=== PATIENT | male | born 1955 | race Caucasian/White ===

== ENCOUNTER 2017-07-15 09:11 | Inpatient (IN) | payer SELFPAY ==
[~2017-07-15] VITALS: Ht 185.4 cm; Wt 74.5 kg
[2017-07-15] VITALS (13 sets, daily range): BP systolic 124–170; BP diastolic 61–114; PULSE 75–96; TEMP 36.8–37.2; O2SAT 91–96; Ht 185.4 cm; Wt 74.5 kg
[2017-07-15] MEDS ORDERED: FAMOTIDINE 20MG/102 ML D5W IV STA (09:43)
[2017-07-15] MEDS ORDERED: ONDANSETRON INJ 2 MG/ML 2 ML VIAL IV STA (09:43)
[2017-07-15] MEDS ORDERED: FENTANYL CITRATE INJ 50 MCG/1 ML 2 ML VIAL IV STA ×2 (09:43→10:55)
[2017-07-15] MEDS ORDERED: SODIUM CHLORIDE 0.9% 1000ML 1,000 ML IV STA (09:43)
--- NOTE | 2017-07-15 09:45 | EMERGENCY ROOM VISIT NOTE ---
History Report prepared by Jasvir: Keerthi Tuttle Under the Supervision of: Dr. Juan Diallo M.D. First contact with patient: 09:27 Chief Complaint: ABDOMINAL PAIN Stated Complaint: ABDOMINAL PAIN Nursing Triage Summary: c/o LLQ abdominal tenderness starting at 3 am. reports vomiting "white mucus". denies diarrhea/constipation. c/o "dribbling and burning" with urination. reports decreased appetite. skin pwd resp even unlabored. History of Present Illness The patient is a 62 year old male who presents to the Emergency Room with complaints of persistent left lower quadrant abdominal pain that began around 0300. He currently rates his discomfort as a 6/10 in severity. The patient states that he woke this morning at 0300 with sudden pain to his abdomen. He states that his pain is worsened with movement and with breathing. The patient denies ever having this in the past. He denies any history of abdominal surgeries. The patient reports an increased cough. He states that he has been feeling intermittently nauseous. The patient reports passing white mucousy stool. He states that he has been feeling dizzy and short of breath. The patient denies any chest pain. Source of History: patient Onset: 0300 Position: abdomen (LLQ) Symptom Intensity: 6/10 Timing: other (persistent) Modifying Factors (Worsening): breathing, movement Associated Symptoms: + cough, + SOB, + nausea, + diarrhea Note: Associated Symptoms: dizzy Review of Systems See HPI for pertinent positives and negatives. A total of ten systems were reviewed and were otherwise negative. Past Medical & Surgical Medical Problems: (1) Hypertension Surgical Problems: (1) Hip fracture, right Family History No pertinent family history stated. Social History Smoking Status: Current Every Day Smoker Marital Status: single Occupation Status: unemployed Current/Historical Medications No Active Prescriptions or Reported Meds Allergies Coded Allergies: No Known Allergies (Unverified , 07/15/17) Physical Exam Vital Signs Date Time Temp Pulse Resp B/P (MAP) Pulse Ox O2 Delivery O2 Flow Rate FiO2 07/15/17 12:39 174/113 07/15/17 12:30 17 07/15/17 12:00 22 07/15/17 11:30 91 18 98 07/15/17 11:00 82 22 98 07/15/17 10:48 195/124 07/15/17 10:05 69 16 07/15/17 10:00 68 17 95 07/15/17 09:59 167/109 07/15/17 09:50 72 07/15/17 09:18 36.7 59 18 199/122 99 Room Air Physical Exam GENERAL: Awake, alert, uncomfortable but in no acute distress HENT: Normocephalic, atraumatic. Dry mucous membranes. EYES: Normal conjunctiva. Sclera non-icteric. NECK: Supple. No nuchal rigidity. FROM. No JVD. RESPIRATORY: Clear to auscultation. CARDIAC: Regular rate, normal rhythm. Extremities warm and well perfused. Pulses equal. ABDOMEN: Soft, non-distended. Exquisite left lower quadrant tenderness to palpation, mild epigastric tenderness to palpation, no peritoneal signs. No rebound or guarding. No masses. RECTAL: Deferred. MUSCULOSKELETAL: Chest examination reveals no tenderness. The back is symmetrical on inspection without obvious abnormality. There is no CVA tenderness to palpation. No joint edema. LOWER EXTREMITIES: Calves are equal size bilaterally and non-tender. No edema. No discoloration. NEURO: Normal sensorium. No sensory or motor deficits noted. SKIN: No rash or jaundice noted. Medical Decision & Procedures ER Provider Diagnostic Interpretation: Radiology results as stated below per my review and radiologist interpretation: CHEST ONE VIEW PORTABLE CLINICAL HISTORY: 62 years-old Male presenting with ABDOMINAL PAIN/GI. TECHNIQUE: Portable upright AP view of the chest was obtained. COMPARISON: None. FINDINGS: Cardiomediastinal silhouette normal. Minimal reticular opacities at the left lung base. No large effusion or pneumothorax. Osseous structures normal. Upper abdomen normal. IMPRESSION: 1. Minimal reticulation at the left lung base, possibly scarring or atelectasis. Electronically signed by: Kris Lopez M.D. 07/15/2017 10:03 AM Dictated Date/Time: 07/15/2017 10:02 AM ABD/PELVIS IV CONTRAST ONLY CLINICAL HISTORY: 62 years-old Male presenting with upper and LLQ abd pain, trouble urinating. TECHNIQUE: Multidetector CT of the abdomen and pelvis was performed after the administration of intravenous contrast. IV contrast: 94 mL of Optiray 320. A dose lowering technique was used consistent with the principles of ALARA (as low as reasonably achievable). COMPARISON: None. CT DOSE (mGy.cm): The estimated cumulative dose is 529.57 mGycm. FINDINGS: [employer] Supervisor topogram: Intramedullary nail fixation of the right femoral neck and proximal metadiaphysis. Lung bases: Minimal dependent changes likely atelectasis. Emphysematous changes also noted. Multichamber enlargement of the heart. No pericardial or pleural effusion. Liver: Normal morphology. No liver lesion. Patent hepatic vasculature. Biliary: No intrahepatic or extrahepatic biliary ductal dilatation. Focal thickening of the gallbladder fundus likely adenomyomatosis. Pancreas: Extensive peripancreatic fluid and inflammatory change along the tail. Parenchyma enhances normally. No pancreatic ductal dilatation. Spleen: Normal. Adrenal glands: Normal. Kidneys and ureters: Severe hydronephrosis bilaterally with hydroureter. An obstructing 11 mm calculus is noted in the proximal right ureter. Additional nonobstructing calculus measuring 4 mm at the right lower pole. Obstructing 8 mm calculus in the mid left ureter. Nonobstructing left renal calculi measuring up to 6 mm in the lower pole. Moderate amount of left perinephric fluid. Bladder: Circumference of bladder wall thickening likely indicating chronic outlet obstruction. No bladder calculi. Pelvic organs: Prostate enlargement likely secondary to benign prostatic hyperplasia. Bowel: Normal. No bowel obstruction. Moderate hiatal hernia. Peritoneal cavity: No free fluid or intraperitoneal gas. Extensive retroperitoneal fluid as described above. Vasculature: Aorta and IVC patent and normal in caliber. Lymph nodes: Multiple prominent retroperitoneal lymph nodes, which are subcentimeter in the short axis, likely reactive. Abdominal wall: Normal. Musculoskeletal: Intramedullary nail through the right femoral neck and proximal metadiaphysis. IMPRESSION: 1. Bilateral obstructing ureteral calculi measuring 11 mm in the proximal right ureter and 8 mm in the mid left ureter. Resultant severe bilateral hydroureteronephrosis. Additional bilateral nephrolithiasis. The presence of extensive left perinephric fluid suggests calyceal rupture. 2. Extensive peripancreatic fluid along the tail. This could be secondary to left renal calyceal rupture versus acute interstitial edematous pancreatitis. Correlate with lipase. 3. Prostatomegaly with chronic bladder outlet obstruction. Electronically signed by: Kris Lopez M.D. 07/15/2017 10:58 AM Dictated Date/Time: 07/15/2017 10:51 AM Laboratory Results 07/15/17 09:20 Red Blood Count 5.04, Mean Corpuscular Volume 96.0, Mean Corpuscular Hemoglobin 31.5, Mean Corpuscular Hemoglobin Concent 32.9, Mean Platelet Volume 10.5, Neutrophils (%) (Auto) 80.9, Lymphocytes (%) (Auto) 13.4, Monocytes (%) (Auto) 4.9, Eosinophils (%) (Auto) 0.1, Basophils (%) (Auto) 0.2, Neutrophils # (Auto) 11.99, Lymphocytes # (Auto) 1.99, Monocytes # (Auto) 0.73, Eosinophils # (Auto) 0.02, Basophils # (Auto) 0.03 07/15/17 09:20 Test 07/15/17 09:20 07/15/17 09:58 07/15/17 10:37 White Blood Count 14.83 K/uL (4.8-10.8) Red Blood Count 5.04 M/uL (4.7-6.1) Hemoglobin 15.9 g/dL (14.0-18.0) Hematocrit 48.4 % (42-52) Mean Corpuscular Volume 96.0 fL (80-100) Mean Corpuscular Hemoglobin 31.5 pg (25-34) Mean Corpuscular Hemoglobin Concent 32.9 g/dl (32-36) Platelet Count 261 K/uL (130-400) Mean Platelet Volume 10.5 fL (7.4-10.4) Neutrophils (%) (Auto) 80.9 % Lymphocytes (%) (Auto) 13.4 % Monocytes (%) (Auto) 4.9 % Eosinophils (%) (Auto) 0.1 % Basophils (%) (Auto) 0.2 % Neutrophils # (Auto) 11.99 K/uL (1.4-6.5) Lymphocytes # (Auto) 1.99 K/uL (1.2-3.4) Monocytes # (Auto) 0.73 K/uL (0.11-0.59) Eosinophils # (Auto) 0.02 K/uL (0-0.5) Basophils # (Auto) 0.03 K/uL (0-0.2) RDW Standard Deviation 45.6 fL (36.4-46.3) RDW Coefficient of Variation 13.1 % (11.5-14.5) Immature Granulocyte % (Auto) 0.5 % Immature Granulocyte # (Auto) 0.07 K/uL (0.00-0.02) Anion Gap 9.0 mmol/L (3-11) Est Creatinine Clear Calc Drug Dose 60.1 ml/min Estimated GFR () 62.8 Estimated GFR (Non- 54.2 BUN/Creatinine Ratio 12.7 (10-20) Calcium Level 10.3 mg/dl (8.5-10.1) Total Bilirubin 0.6 mg/dl (0.2-1) Direct Bilirubin 0.2 mg/dl (0-0.2) Aspartate Amino Transf (AST/SGOT) 20 U/L (15-37) Alanine Aminotransferase (ALT/SGPT) 23 U/L (12-78) Alkaline Phosphatase 102 U/L (45-117) Troponin I < 0.015 ng/ml (0-0.045) Total Protein 7.5 gm/dl (6.4-8.2) Albumin 4.0 gm/dl (3.4-5.0) Lipase 120 U/L (73-393) Lactic Acid Level 1.4 mmol/L (0.4-2.0) Urine Color YELLOW Urine Appearance CLOUDY (CLEAR) Urine pH 6.5 (4.5-7.5) Urine Specific [place] 1.018 (1.000-1.030) Urine Protein NEG (NEG) Urine Glucose (UA) NEG (NEG) Urine Ketones NEG (NEG) Urine Occult Blood 2+ (NEG) Urine Nitrite NEG (NEG) Urine Bilirubin NEG (NEG) Urine Urobilinogen NEG (NEG) Urine Leukocyte Esterase LARGE (NEG) Urine WBC (Auto) >30 /hpf (0-5) Urine RBC (Auto) 10-30 /hpf (0-4) Urine Hyaline Casts (Auto) 1-5 /lpf (0-5) Urine Epithelial Cells (Auto) 0-5 /lpf (0-5) Urine Bacteria (Auto) 1+ (NEG) Laboratory results reviewed by me Medications Administered Medications (Trade) Dose Ordered Sig/Elsi Route Start Time Stop Time Status Last Admin Dose Admin Sodium Chloride 1,000 ml @ 999 mls/hr Q1H1M STAT IV 07/15/17 09:43 07/15/17 10:43 DC 07/15/17 09:57 999 MLS/HR Ondansetron HCl (Zofran Inj) 4 mg NOW STAT IV 10/2/17 09:43 07/15/17 09:47 DC 07/15/17 09:58 4 MG Famotidine (Pepcid 20mg/100 ml) 20 mg ONE STAT IV 07/15/17 09:43 07/15/17 09:47 DC 07/15/17 09:57 20 MG Fentanyl Citrate (Fentanyl Inj) 50 mcg NOW STAT IV 07/15/17 09:43 07/15/17 09:47 DC 07/15/17 09:57 50 MCG Fentanyl Citrate (Fentanyl Inj) 100 mcg NOW STAT IV 07/15/17 10:55 07/15/17 10:56 DC 07/15/17 11:01 100 MCG Morphine Sulfate (MoRPHine SULFATE INJ) 6 mg NOW STAT IV 07/15/17 11:29 07/15/17 11:31 DC 07/15/17 11:35 6 MG Ceftriaxone Sodium 2000 mg/ Dextrose 70 ml @ 100 mls/hr ONE STAT IV 07/15/17 11:29 07/15/17 12:10 DC 07/15/17 12:36 100 MLS/HR ECG Indication: abdominal pain, back/shoulder pain Rate (beats per minute): 58 Rhythm: sinus bradycardia Findings: no acute ischemic change, other (normal intervals) ED Course 0930: The patient was evaluated in room B9. A complete history and physical exam was performed. 0943: Ordered Fentanyl Inj 50 mcg IV, Famotidine 20 mg IV, Zofran Inj 4 mg IV, Sodium Chloride 1000 ml @ 999 mls/hr IV. 1055: Ordered Fentanyl Inj 100 mcg IV. 1129: Ordered Ceftriaxone Sodium 2000 mg/Dextrose 70 ml @ 100 mls/hr IV, Morphine sulfate 6 mg IV. 1131: I reevaluated the patient and he is resting. I discussed the exam findings with him and I discussed the treatment plan. He verbalized complete understanding and agreement. He will be evaluated for further treatment. 1151: I discussed the patients case with Dr. Dubois, Urology. She states that she will try to place a stent in the patient this afternoon, but would also like the hospitalist consulted to evaluate the patient. 1217: I discussed the patients case with Dr. [facility]. He is going to evaluate the patient for further treatment. Medical Decision The patient's presentation and history were concerning for Bowel obstruction, diverticulitis, colitis, gastroenteritis, gastritis, biliary etiology. I reviewed the patient's past medical history, medications, and the nursing notes as described above. The patient is a 62 y/o man who presents to the ED with acute onset abdominal pain per HPI. On arrival the patient is uncomfortable but in NAD. AFVSS. Exquisite LLQ ttp. Mild epigastrim pain. No peritoneal signs. WBC 14, lactate within normal limits. On CT the patient has bilateral obstructing ureteral stones, 11 millimeters on the right and 8 mm on the left. UA grossly positive for infection, will treat for infected stone and admit. Given CTX given patient is non-toxic, without signs of sepsis, and no h/o of or risk factors for resistant organisms. Case d/w Dr. Dubois, urology, who will plan to take patient to OR for stent. Also, d/w Rosario Ashby hospitalist who will admit the patient for further management. Medication Reconcilliation Current Medication List: was personally reviewed by me Blood Pressure Screening Patient's blood pressure: Elevated blood pressure Blood pressure disposition: Elevated BP felt to be situational, Did not require urgent referral Consults Time Called: 1126 Consulting Physician: Dr. Dubois, Urology Returned Call: 1151 I discussed the patients case with Dr. Dubois, Urology. She states that she will try to place a stent in the patient this afternoon, but would also like the hospitalist consulted to evaluate the patient. Additional Consults: Time Called: 1156 Consulted Physician: Rosario Ashby Returned Call: [phone] Additional Comments: I discussed the patients case with Rosario Ashby. He is going to evaluate the patient for further treatment. Impression Primary Impression: Ureterolithiasis Additional Impressions: Hydronephrosis UTI (urinary tract infection) Scribe Attestation The scribe's documentation has been prepared under my direction and personally reviewed by me in its entirety. I confirm that the note above accurately reflects all work, treatment, procedures, and medical decision making performed by me. Departure Information Dispostion Being Evaluated By Hospitalist Prescriptions No Active Prescriptions or Reported Meds Problem Qualifiers
[2017-07-15 09:57] LABS: BASO % 0.2 %; BASO ABS # 0.03 K/uL (0-0.2); COMPLETE YES; EOS % 0.1 %; HEMATOCRIT 48.4 % (42-52); IG% 0.5 %; LYMPH % 13.4 %; LYMPH ABS # 1.99 K/uL (1.2-3.4); MEAN CORPUSCULAR HEMOGLOBIN 31.5 pg (25-34); MEAN CORPUSCULAR HGB CONC 32.9 g/dl (32-36); MEAN PLATELET VOLUME 10.5 fL (7.4-10.4); MONO % 4.9 %; NEUT % 80.9 %; PLATELET COUNT 261 K/uL (130-400); RED BLOOD COUNT 5.04 M/uL (4.7-6.1); WHITE BLOOD COUNT 14.83 K/uL (4.8-10.8)
[2017-07-15] MEDS ORDERED: OPTIRAY 320 IV PRN (10:00)
[2017-07-15 10:04] LABS: ALT/SGPT 23 U/L (12-78); BLOOD UREA NITROGEN 18 mg/dl (7-18); BUN/CREATININE RATIO 12.7 (10-20); CALCIUM 10.3 mg/dl (8.5-10.1); CARBON DIOXIDE 24 mmol/L (21-32); CHLORIDE 108 mmol/L (98-107); GLUCOSE 115 mg/dl (70-99); POTASSIUM 4.3 mmol/L (3.5-5.1); SODIUM 141 mmol/L (136-145)
--- NOTE | 2017-07-15 10:04 | DIAGNOSTIC IMAGING REPORT ---
CHEST ONE VIEW PORTABLE CLINICAL HISTORY: 62 years-old Male presenting with ABDOMINAL PAIN/GI. TECHNIQUE: Portable upright AP view of the chest was obtained. COMPARISON: None. FINDINGS: Cardiomediastinal silhouette normal. Minimal reticular opacities at the left lung base. No large effusion or pneumothorax. Osseous structures normal. Upper abdomen normal. IMPRESSION: 1. Minimal reticulation at the left lung base, possibly scarring or atelectasis. Electronically signed by: Kris Lopez M.D. 07/15/2017 10:03 AM Dictated Date/Time: 07/15/2017 10:02 AM
[2017-07-15 10:09] LABS: ALKALINE PHOSPHATASE 102 U/L (45-117); AST/SGOT 20 U/L (15-37)
--- NOTE | 2017-07-15 10:59 | DIAGNOSTIC IMAGING REPORT ---
ABD/PELVIS IV CONTRAST ONLY CLINICAL HISTORY: 62 years-old Male presenting with upper and LLQ abd pain, trouble urinating. TECHNIQUE: Multidetector CT of the abdomen and pelvis was performed after the administration of intravenous contrast. IV contrast: 94 mL of Optiray 320. A dose lowering technique was used consistent with the principles of ALARA (as low as reasonably achievable). COMPARISON: None. CT DOSE (mGy.cm): The estimated cumulative dose is 529.57 mGycm. FINDINGS: [employer] Consultant topogram: Intramedullary nail fixation of the right femoral neck and proximal metadiaphysis. Lung bases: Minimal dependent changes likely atelectasis. Emphysematous changes also noted. Multichamber enlargement of the heart. No pericardial or pleural effusion. Liver: Normal morphology. No liver lesion. Patent hepatic vasculature. Biliary: No intrahepatic or extrahepatic biliary ductal dilatation. Focal thickening of the gallbladder fundus likely adenomyomatosis. Pancreas: Extensive peripancreatic fluid and inflammatory change along the tail. Parenchyma enhances normally. No pancreatic ductal dilatation. Spleen: Normal. Adrenal glands: Normal. Kidneys and ureters: Severe hydronephrosis bilaterally with hydroureter. An obstructing 11 mm calculus is noted in the proximal right ureter. Additional nonobstructing calculus measuring 4 mm at the right lower pole. Obstructing 8 mm calculus in the mid left ureter. Nonobstructing left renal calculi measuring up to 6 mm in the lower pole. Moderate amount of left perinephric fluid. Bladder: Circumference of bladder wall thickening likely indicating chronic outlet obstruction. No bladder calculi. Pelvic organs: Prostate enlargement likely secondary to benign prostatic hyperplasia. Bowel: Normal. No bowel obstruction. Moderate hiatal hernia. Peritoneal cavity: No free fluid or intraperitoneal gas. Extensive retroperitoneal fluid as described above. Vasculature: Aorta and IVC patent and normal in caliber. Lymph nodes: Multiple prominent retroperitoneal lymph nodes, which are subcentimeter in the short axis, likely reactive. Abdominal wall: Normal. Musculoskeletal: Intramedullary nail through the right femoral neck and proximal metadiaphysis. IMPRESSION: 1. Bilateral obstructing ureteral calculi measuring 11 mm in the proximal right ureter and 8 mm in the mid left ureter. Resultant severe bilateral hydroureteronephrosis. Additional bilateral nephrolithiasis. The presence of extensive left perinephric fluid suggests calyceal rupture. 2. Extensive peripancreatic fluid along the tail. This could be secondary to left renal calyceal rupture versus acute interstitial edematous pancreatitis. Correlate with lipase. 3. Prostatomegaly with chronic bladder outlet obstruction. Electronically signed by: Kris Lopez M.D. 07/15/2017 10:58 AM Dictated Date/Time: 07/15/2017 10:51 AM
[2017-07-15 11:05] LABS: URINE APPEARANCE CLOUDY (CLEAR); URINE BILIRUBIN NEG (NEG); URINE COLOR YELLOW; URINE EPITHELIAL CELL AUTO 0-5 /lpf (0-5); URINE NITRITE NEG (NEG); URINE PH 6.5 (4.5-7.5); URINE SPECIFIC GRAVITY 1.018 (1.000-1.030); UROBILINOGEN NEG (NEG); ZZUR CULT IF INDIC CLEAN CATCH YES
[2017-07-15 11:08] LABS: MANUAL MICROSCOPIC REQUIRED? NO; REVIEW REQ? NO
[2017-07-15] MEDS ORDERED: CEFTRIAXONE SOD INJ 2,000 MG in DEXTROSE 5% 50ML 50 ML IV STA (11:29)
[2017-07-15] MEDS ORDERED: MoRPHine SULFATE 10 MG/ML CARP/VIAL IV STA (11:29)
--- NOTE | 2017-07-15 12:43 | History and Physical ---
History & Physical Date & Time of Service: Jul 15, 2017 at 12:43 . Chief Complaint: Abdominal Pain . Primary Care Physician: No Doctor, Assigned . History of Present Illness Source: patient, hospital records 62 YO male without a primary care provider. History of hypertension; has been unable to obtain his medications. Developed abdominal pain around 3:00 this morning when he was sleeping. Pain located in the LLQ and does not radiate. It is constant and severe (9/10). Associated with nausea and vomiting. No fever. No dysuria. No diarrhea, melena, hematochezia. Did not take any meds to relieve his symptoms at home. Came to ED for evaluation. Received ondansetron, fentanyl, and morphine with minimal relief of his symptoms. CT of abdomen and pelvis demonstrated bilateral ureteral calculi as detailed below. 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 Patient referred for admission for further evaluation and management. . Past Medical/Surgical History Chronic Medical Problems: (1) Hypertension Status: Chronic Surgical Problems: (1) Hip fracture, right Permanent Comment: s/p ORIF Status: Chronic . Family History Pt unaware of any family medical history. . Social History Smoking Status: Current Every Day Smoker Alcohol Use: none Allergies Coded Allergies: No Known Allergies (Unverified , 07/15/17) Home Medications No Active Prescriptions or Reported Meds Review of Systems Constitutional: + chills, No fever, No weight loss Eyes: No worsening of vision ENT: + dental problems (edentulous) Respiratory: + cough (chronic), + dyspnea on exertion Cardiovascular: No chest pain Abdomen: + problem reported (as noted above in HPI) Musculoskeletal: + joint pain (right hip) Genitourinary - Male: + problem reported (as noted above in HPI) Neurologic: + problem reported (no headaches) Endocrine: No excessive thirst, No excessive urination Hematologic / Lymphatic: No abnormal bleeding/bruising, No swollen lymph nodes Physical Exam Vital Signs Date Time Temp Pulse Resp B/P (MAP) Pulse Ox O2 Delivery O2 Flow Rate FiO2 07/15/17 12:39 174/113 07/15/17 12:30 17 07/15/17 12:00 22 07/15/17 11:30 91 18 98 07/15/17 11:00 82 22 98 07/15/17 10:48 195/124 07/15/17 10:05 69 16 07/15/17 10:00 68 17 95 07/15/17 09:59 167/109 07/15/17 09:50 72 07/15/17 09:18 36.7 59 18 199/122 99 Room Air General Appearance: WD/WN, + moderate distress Head: normocephalic, atraumatic Eyes: normal inspection, PERRL, EOMI, sclerae normal (conjunctivae pink) ENT: hearing grossly normal, + pertinent finding (oral mucosa dry, edentulous) Neck: supple, no adenopathy, thyroid normal, no JVD, trachea midline Respiratory/Chest: lungs clear, no respiratory distress, no accessory muscle use Cardiovascular: regular rate, rhythm, no edema, no JVD, no murmur, + gallop/S4 Abdomen/GI: + pertinent finding (quiet bowel sounds, left lower quadrant tenderness with guarding, no masses or organomegaly appreciated, but exam limited) Extremities/Musculoskelatal: normal inspection, no calf tenderness, no pedal edema 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 as 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 (PERRL, EOMI, no facial palsy), no motor/sensory deficits (grossly intact), alert, normal mood/affect, oriented x 3 Skin: normal color, warm/dry, no rash Lymphatic: no adenopathy (cervical) Diagnostics Laboratory Results Results Past 24 Hours Test 07/15/17 09:20 07/15/17 09:58 07/15/17 10:37 Range/Units White Blood Count 14.83 4.8-10.8 K/uL Red Blood Count 5.04 4.7-6.1 M/uL Hemoglobin 15.9 14.0-18.0 g/dL Hematocrit 48.4 42-52 % Mean Corpuscular Volume 96.0 80-100 fL Mean Corpuscular Hemoglobin 31.5 25-34 pg Mean Corpuscular Hemoglobin Concent 32.9 32-36 g/dl Platelet Count 261 130-400 K/uL Mean Platelet Volume 10.5 7.4-10.4 fL Neutrophils (%) (Auto) 80.9 % Lymphocytes (%) (Auto) 13.4 % Monocytes (%) (Auto) 4.9 % Eosinophils (%) (Auto) 0.1 % Basophils (%) (Auto) 0.2 % Neutrophils # (Auto) 11.99 1.4-6.5 K/uL Lymphocytes # (Auto) 1.99 1.2-3.4 K/uL Monocytes # (Auto) 0.73 0.11-0.59 K/uL Eosinophils # (Auto) 0.02 0-0.5 K/uL Basophils # (Auto) 0.03 0-0.2 K/uL RDW Standard Deviation 45.6 36.4-46.3 fL RDW Coefficient of Variation 13.1 11.5-14.5 % Immature Granulocyte % (Auto) 0.5 % Immature Granulocyte # (Auto) 0.07 0.00-0.02 K/uL Sodium Level 141 136-145 mmol/L Potassium Level 4.3 3.5-5.1 mmol/L Chloride Level 108 98-107 mmol/L Carbon Dioxide Level 24 21-32 mmol/L Anion Gap 9.0 3-11 mmol/L Blood Urea Nitrogen 18 7-18 mg/dl Creatinine 1.40 0.60-1.40 mg/dl Est Creatinine Clear Calc Drug Dose 60.1 ml/min Estimated GFR () 62.8 Estimated GFR (Non- 54.2 BUN/Creatinine Ratio 12.7 10-20 Random Glucose 115 70-99 mg/dl Calcium Level 10.3 8.5-10.1 mg/dl Total Bilirubin 0.6 0.2-1 mg/dl Direct Bilirubin 0.2 0-0.2 mg/dl Aspartate Amino Transf (AST/SGOT) 20 15-37 U/L Alanine Aminotransferase (ALT/SGPT) 23 12-78 U/L Alkaline Phosphatase 102 45-117 U/L Troponin I < 0.015 0-0.045 ng/ml Total Protein 7.5 6.4-8.2 gm/dl Albumin 4.0 3.4-5.0 gm/dl Lipase 120 73-393 U/L Lactic Acid Level 1.4 0.4-2.0 mmol/L Urine Color YELLOW Urine Appearance CLOUDY CLEAR Urine pH 6.5 4.5-7.5 Urine Specific [place] 1.018 1.000-1.030 Urine Protein NEG NEG Urine Glucose (UA) NEG NEG Urine Ketones NEG NEG Urine Occult Blood 2+ NEG Urine Nitrite NEG NEG Urine Bilirubin NEG NEG Urine Urobilinogen NEG NEG Urine Leukocyte Esterase LARGE NEG Urine WBC (Auto) >30 0-5 /hpf Urine RBC (Auto) 10-30 0-4 /hpf Urine Hyaline Casts (Auto) 1-5 0-5 /lpf Urine Epithelial Cells (Auto) 0-5 0-5 /lpf Urine Bacteria (Auto) 1+ NEG Microbiology Results 07/15/17 Blood Culture, Ordered Pending 07/15/17 Blood Culture, Ordered Pending 07/15/17 Urine Culture, Received Pending Diagnostic Radiology CHEST ONE VIEW PORTABLE FINDINGS: Cardiomediastinal silhouette normal. Minimal reticular opacities at the left lung base. No large effusion or pneumothorax. Osseous structures normal. Upper abdomen normal. IMPRESSION: 1. Minimal reticulation at the left lung base, possibly scarring or atelectasis. Electronically signed by: Kris Lopez M.D. 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 Lung bases: Minimal dependent changes likely atelectasis. Emphysematous changes also noted. Multichamber enlargement of the heart. No pericardial or pleural effusion. Liver: Normal morphology. No liver lesion. Patent hepatic vasculature. Biliary: No intrahepatic or extrahepatic biliary ductal dilatation. Focal thickening of the gallbladder fundus likely adenomyomatosis. Pancreas: Extensive peripancreatic fluid and inflammatory change along the tail. Parenchyma enhances normally. No pancreatic ductal dilatation. Spleen: Normal. Adrenal glands: Normal. Kidneys and ureters: Severe hydronephrosis bilaterally with hydroureter. An obstructing 11 mm calculus is noted in the proximal right ureter. Additional nonobstructing calculus measuring 4 mm at the right lower pole. Obstructing 8 mm calculus in the mid left ureter. Nonobstructing left renal calculi measuring up to 6 mm in the lower pole. Moderate amount of left perinephric fluid. Bladder: Circumference of bladder wall thickening likely indicating chronic outlet obstruction. No bladder calculi. Pelvic organs: Prostate enlargement likely secondary to benign prostatic hyperplasia. Bowel: Normal. No bowel obstruction. Moderate hiatal hernia. Peritoneal cavity: No free fluid or intraperitoneal gas. Extensive retroperitoneal fluid as described above. Vasculature: Aorta and IVC patent and normal in caliber. Lymph nodes: Multiple prominent retroperitoneal lymph nodes, which are subcentimeter in the short axis, likely reactive. Abdominal wall: Normal. Musculoskeletal: Intramedullary nail through the right femoral neck and proximal metadiaphysis. IMPRESSION: 1. Bilateral obstructing ureteral calculi measuring 11 mm in the proximal right ureter and 8 mm in the mid left ureter. Resultant severe bilateral hydroureteronephrosis. Additional bilateral nephrolithiasis. The presence of extensive left perinephric fluid suggests calyceal rupture. 2. Extensive peripancreatic fluid along the tail. This could be secondary to left renal calyceal rupture versus acute interstitial edematous pancreatitis. Correlate with lipase. 3. Prostatomegaly with chronic bladder outlet obstruction. Electronically signed by: Kris Lopez M.D. 07/15/2017 10:58 AM Dictated Date/Time: 07/15/2017 10:51 AM . EKG EKG performed at 09:24 reviewed and demonstrated sinus bradycardia with sinus arrhythmia at 58 / minute, lateral T-wave flattening and biphasic T-waves. . Impression Assessment and Plan BILATERAL URETERAL CALCULI CT demonstrates bilateral ureteral calculi with bilateral hydronephrosis and left perinephric fluid suggesting calyceal rupture. WBC elevated, but does not appear to be septic. Blood and urine cultures obtained in ED and patient received IV ceftriaxone. Urology consulted. Will change antibiotic to IV piperacillin / tazobactam for broader coverage. PERIPANCREATIC FLUID Noted on CT. Lipase normal. Peripancreatic fluid most likely secondary to calyceal rupture. PROSTATOMEGALY CT demonstrates prostatomegaly and evidence of chronic urinary retention. Management per Urology. HYPERTENSIVE URGENCY History of hypertension. Unable to obtain meds. Systolic BP in ED as high as 199, diastolic BP as high as 124. IV labetalol PRN while NPO and until BP's are better controlled. Follow and titrate Rx. CARDIOMEGALY Noted on CT. Check echo. SMOKING Smoking cessation counseling. VTE PROPHYLAXIS No anticoagulants in light of anticipated surgery + markedly elevated BP's. SCD's. Ambulate as able. RESUSCITATION STATUS Full code. DISPOSITION Expected discharge to home. Will need to establish with primary care. Currently without insurance and unable to pay for meds- consult Case Management. Urology follow-up with Dr. Dubois. . VTE Prophylaxis VTE Risk Assessment Done? Y/N: Yes Risk Level: Moderate Given or contraindicated: SCD's
[2017-07-15] MEDS ORDERED: LABETALOL HCL IV 5 MG/ML 20ML IV STA (12:59)
[2017-07-15] MEDS ORDERED: MoRPHine SULFATE 2 MG/ML CARP IV STA (12:59)
[2017-07-15] MEDS ORDERED: SODIUM CHLORIDE 0.9% 1000ML 1,000 ML IV SCH (13:00)
[2017-07-15] MEDS ORDERED: MoRPHine SULFATE 4 MG/ML 1 ML CARP\\VIAL IV ONE (13:05)
[2017-07-15] MEDS ORDERED: PIPERACILLIN/TAZOBACTAM 4.5 GM/100ML D5W IV STA (13:21)
[2017-07-15] MEDS ORDERED: LABETALOL HCL IV 5 MG/ML 20ML IV PRN (13:30)
[2017-07-15] MEDS ORDERED: ONDANSETRON INJ 2 MG/ML 2 ML VIAL IV PRN ×2 (13:30→15:30)
[2017-07-15] MEDS ORDERED: PIPERACILL/TAZOBAC IV 4.5 GM in DEXTROSE 5% 100ML IV STA (13:46)
[2017-07-15] MEDS ORDERED: PIPERACILL/TAZOBAC CONSULT ACTIVE PRN (14:00)
[2017-07-15] MEDS ORDERED: CONRAY 30% 150ML BOTTLE ONE (14:55)
[2017-07-15] MEDS ORDERED: PROPOFOL IV EMULSION 10 MG/ML 20 ML VIAL IV ONE (15:11)
[2017-07-15] MEDS ORDERED: MIDAZOLAM HCL 1 MG/ML 2ML VIAL ONE (15:11)
[2017-07-15] MEDS ORDERED: FENTANYL CITRATE INJ 50 MCG/1 ML 2 ML VIAL ONE (15:11)
[2017-07-15] MEDS ORDERED: LIDOCAINE HCL 2% 2 ML VIAL (20MG/ML) ONE (15:11)
[2017-07-15] MEDS ORDERED: ALBUT/IPRATROP 3MG/0.5MG NEB 3 ML VIAL NEB STA (15:19)
--- NOTE | 2017-07-15 15:28 | Urology Consultation ---
History General Date of Service: Jul 15, 2017. Chief Complaint: bilateral ureteral stones Primary Care Physician: No Doctor, Assigned Pt seen a urologist before?: No History of Present Illness I am asked by Dr Black to evaluate and treat patient for bilateral obstructing ureteral stones. he has had pain since 3am. he has had associated nausea and emesis. He has a low grade temp in ER. He has not had stones before. He had ct showing right UPJ stone with hydro and a left mid ureteral stone at the iliac vessels with hydro. Imaging Imaging: CT Laboratory Results Past 24 Hours Test 07/15/17 09:20 07/15/17 09:58 07/15/17 10:37 Range/Units White Blood Count 14.83 4.8-10.8 K/uL Red Blood Count 5.04 4.7-6.1 M/uL Hemoglobin 15.9 14.0-18.0 g/dL Hematocrit 48.4 42-52 % Mean Corpuscular Volume 96.0 80-100 fL Mean Corpuscular Hemoglobin 31.5 25-34 pg Mean Corpuscular Hemoglobin Concent 32.9 32-36 g/dl Platelet Count 261 130-400 K/uL Mean Platelet Volume 10.5 7.4-10.4 fL Neutrophils (%) (Auto) 80.9 % Lymphocytes (%) (Auto) 13.4 % Monocytes (%) (Auto) 4.9 % Eosinophils (%) (Auto) 0.1 % Basophils (%) (Auto) 0.2 % Neutrophils # (Auto) 11.99 1.4-6.5 K/uL Lymphocytes # (Auto) 1.99 1.2-3.4 K/uL Monocytes # (Auto) 0.73 0.11-0.59 K/uL Eosinophils # (Auto) 0.02 0-0.5 K/uL Basophils # (Auto) 0.03 0-0.2 K/uL RDW Standard Deviation 45.6 36.4-46.3 fL RDW Coefficient of Variation 13.1 11.5-14.5 % Immature Granulocyte % (Auto) 0.5 % Immature Granulocyte # (Auto) 0.07 0.00-0.02 K/uL Sodium Level 141 136-145 mmol/L Potassium Level 4.3 3.5-5.1 mmol/L Chloride Level 108 98-107 mmol/L Carbon Dioxide Level 24 21-32 mmol/L Anion Gap 9.0 3-11 mmol/L Blood Urea Nitrogen 18 7-18 mg/dl Creatinine 1.40 0.60-1.40 mg/dl Est Creatinine Clear Calc Drug Dose 60.1 ml/min Estimated GFR () 62.8 Estimated GFR (Non- 54.2 BUN/Creatinine Ratio 12.7 10-20 Random Glucose 115 70-99 mg/dl Calcium Level 10.3 8.5-10.1 mg/dl Total Bilirubin 0.6 0.2-1 mg/dl Direct Bilirubin 0.2 0-0.2 mg/dl Aspartate Amino Transf (AST/SGOT) 20 15-37 U/L Alanine Aminotransferase (ALT/SGPT) 23 12-78 U/L Alkaline Phosphatase 102 45-117 U/L Troponin I < 0.015 0-0.045 ng/ml Total Protein 7.5 6.4-8.2 gm/dl Albumin 4.0 3.4-5.0 gm/dl Lipase 120 73-393 U/L Lactic Acid Level 1.4 0.4-2.0 mmol/L Urine Color YELLOW Urine Appearance CLOUDY CLEAR Urine pH 6.5 4.5-7.5 Urine Specific [place] 1.018 1.000-1.030 Urine Protein NEG NEG Urine Glucose (UA) NEG NEG Urine Ketones NEG NEG Urine Occult Blood 2+ NEG Urine Nitrite NEG NEG Urine Bilirubin NEG NEG Urine Urobilinogen NEG NEG Urine Leukocyte Esterase LARGE NEG Urine WBC (Auto) >30 0-5 /hpf Urine RBC (Auto) 10-30 0-4 /hpf Urine Hyaline Casts (Auto) 1-5 0-5 /lpf Urine Epithelial Cells (Auto) 0-5 0-5 /lpf Urine Bacteria (Auto) 1+ NEG Microbiology Results 07/15/17 Blood Culture, Received Pending 07/15/17 Blood Culture, Received Pending 07/15/17 Urine Culture, Received Pending Labs were reviewed and are within normal limits unless listed below. Labs are available in the chart and at [email or web address] Problem List Medical Problems: (1) Hydronephrosis Status: Acute (2) Ureterolithiasis Status: Acute (3) UTI (urinary tract infection) Status: Acute Past History hypertension Past Surgical History: other (right femur fracture) Family History no stones no cancer Social History Hx Tobacco Use In Past Year?: No Smokin pack/day Alcohol: never Drug use: none Marital status: single Housing status: lives alone Occupation status: unemployed Allergies Coded Allergies: No Known Allergies (Unverified , 07/15/17) Medications Home Medications: Home Meds and Scripts Medications Dose Route/Sig Max Daily Dose Days Date Category No Active Prescriptions or Reported Medications Rx Inpatient Medications: Current Inpatient Medications Medications (Trade) Dose Ordered Sig/Elsi Route Start Time Stop Time Status Last Admin Dose Admin Ioversol (Optiray 320) 125 ml UD PRN IV 07/15/17 10:00 07/19/17 09:59 Sodium Chloride 1,000 ml @ 250 mls/hr Q4H IV 07/15/17 13:00 07/15/17 16:59 07/15/17 14:34 250 MLS/HR Morphine Sulfate (MoRPHine SULFATE INJ) 4 mg Q30M PRN IV 07/15/17 13:30 07/29/17 13:29 Labetalol HCl (Normodyne IV) 10 mg Q30M PRN IV 07/15/17 13:30 08/14/17 13:29 07/15/17 14:41 10 MG Ondansetron HCl (Zofran Inj) 4 mg Q6H PRN IV 07/15/17 13:30 08/14/17 13:29 Famotidine 20 mg/ Dextrose 102 ml @ 200 mls/hr BID IV 07/15/17 21:00 08/14/17 20:59 Piperacillin Sod/ Tazobactam Sod 3.375 gm/Dextrose 115 ml @ 28 mls/hr Q8H IV 07/15/17 20:00 07/25/17 19:59 Piperacillin Sod/ Tazobactam Sod (Consult) 1 ea UD PRN N/A 07/15/17 14:00 08/14/17 13:59 Fentanyl Citrate (Fentanyl Inj) 25 mcg Q5M PRN IV 07/15/17 15:30 07/16/17 15:29 UNV Meperidine HCl (Demerol Inj) 12.5 mg Q5M PRN IV 07/15/17 15:30 07/16/17 15:29 UNV Morphine Sulfate (MoRPHine SULFATE INJ) 2 mg Q5M PRN IV 07/15/17 15:30 07/16/17 15:29 UNV Ondansetron HCl (Zofran Inj) 4 mg ONE PRN IV 07/15/17 15:30 UNV Ephedrine Sulfate (EpHEDrine SULFATE INJ) 5 mg Q5M PRN IV 07/15/17 15:30 07/16/17 15:29 UNV Atropine Sulfate (Atropine Sulfate 0.1MG/Ml Inj) 0.5 mg Q1M PRN IV 07/15/17 15:30 07/16/17 15:29 UNV Albuterol Sulfate (Ventolin 0.083% 2.5MG/3ML Neb) 2.5 mg ONE PRN INH 07/15/17 15:30 07/16/17 15:29 UNV Review of Systems Review of Systems Constitutional: No fever, No chills Neurological: No dizzy, No passing out Endocrine: No excessive thirst, No too hot, No too cold, No tired/sluggish Gastrointestinal: + abdominal pain, + indigestion, + nausea, + vomiting, No constipation, No diarrhea Cardiovascular: No chest pain, No palpitations, No swelling ankles/feet Respiratory: + chronic cough, No shortness of breath Musculoskeletal: + joint pain, + neck pain, + back pain, + arthritis Male : + kidney stones, No frequent urination, No painful urination, No urinary retention, No weak stream, No blood in urine Physical Exam Vital Signs: Vital Signs Past 12 Hours Date Time Temp Pulse Resp B/P (MAP) Pulse Ox O2 Delivery O2 Flow Rate FiO2 07/15/17 14:42 167/108 (127) 07/15/17 14:19 81 20 170/114 95 07/15/17 13:58 83 28 146/91 93 07/15/17 13:44 83 28 07/15/17 13:20 146/91 07/15/17 13:14 85 27 93 07/15/17 13:08 183/117 07/15/17 12:44 78 22 94 07/15/17 12:39 174/113 07/15/17 12:30 17 07/15/17 12:00 22 07/15/17 11:30 91 18 98 07/15/17 11:00 82 22 98 07/15/17 10:48 195/124 07/15/17 10:05 69 16 07/15/17 10:00 68 17 95 07/15/17 09:59 167/109 07/15/17 09:50 72 07/15/17 09:18 36.7 59 18 199/122 99 Room Air Physical Exam: General Appearance: WD/WN, no apparent distress, + thin Eyes: bilateral eyes normal inspection ENT: hearing grossly normal Neck: no adenopathy, no JVD, trachea midline Respiratory/Chest: no respiratory distress, no accessory muscle use Cardiovascular: regular rate, rhythm Gastrointestinal: Abdomen: normal abdomen Bladder: normal bladder Renal: pertinent finding (left CVA tenderness ) Hernia: absent hernia Liver: normal liver Spleen: normal spleen Extremities: non-tender, normal inspection, no pedal edema, no calf tenderness , normal capillary refill Neurologic/Psychiatric: alert, normal mood/affect, oriented x 3 Skin: normal color, warm/dry, no rash Assessment & Plan Assessment & Plan bilateral obstructing large ureteral stones needs urgent cysto with bilateral ureteral stents. He has poor pain tolerance and large prostate so plan LMA general. I described procedure with risk of infection, bladder irritation, bleeding, failure requiring nephrostomy tube placement at another facility He gives consent knee high scds had zosyn in ER will remove stones in a week or 2
[2017-07-15] MEDS ORDERED: FENTANYL CITRATE INJ 50 MCG/1 ML 2 ML VIAL IV PRN (15:30)
[2017-07-15] MEDS ORDERED: MoRPHine SULFATE 10 MG/ML CARP/VIAL IV PRN (15:30)
[2017-07-15] MEDS ORDERED: MEPERIDINE HCL 25 MG/ML CARP IV PRN (15:30)
[2017-07-15] MEDS ORDERED: ATROPINE SULFATE 0.1 MG/ML 5ML SYR IV PRN (15:30)
[2017-07-15] MEDS ORDERED: EpHEDrine SULFATE INJ 50 MG/ML AMP IV PRN (15:30)
[2017-07-15] MEDS ORDERED: ALBUTEROL 0.083% NEBU SOLN 3 ML VIAL INH PRN (15:30)
[2017-07-15] MEDS ORDERED: EpHEDrine SULFATE INJ 50 MG/ML AMP ONE (15:57)
[2017-07-15] MEDS ORDERED: DEXAMETHASONE SOD INJ 4 MG/ML VIAL ONE (15:58)
[2017-07-15] MEDS ORDERED: ONDANSETRON INJ 2 MG/ML 2 ML VIAL ONE (15:58)
[2017-07-15] MEDS ORDERED: BELLADONNA/OPIUM SUPP 60 MG SUPP PR ONE ×2 (16:14→16:16)
--- NOTE | 2017-07-15 16:27 | [facility] Operative Report ---
Operative Report Operative Date Jul 15, 2017. Pre-Operative Diagnosis bilateral obstructing ureteral stones and uti Post-Operative Diagnosis same Procedure(s) Performed cysto bilateral stent placement Surgeon Dr. Dubois Senior Corporate Accountant Surgeon(s) None Estimated Blood Loss 0mL Findings radio-opaque stones left mid ureter and right upper ureter, large amount retained contrast in both hydronephrotic kidneys, very cloudy urine in bladder at start and coming down from kidneys after stenting. Fluids 500mL Specimens Microbiology 1. Urine specimen for Culture and sensitvity and aerobic/anerobic Drains 6 fr 24 centimeter double J stent bilaterally Anesthesia LMA Complication(s) None Disposition Recovery Room / PACU Indications Patient was given general LMA and placed in lithotomy position. His genitals were prepped and draped in sterile fashion. Time out held with team. I placed a 21 fr rigid cystoscope to bladder. The urethra is unremarkable. The prostate is trilobar enlarged. The UOs are somewhat dependently displaced by prostate but relatively easy to find. I placed a road runner wire up left ureter and had some resistance at the iliac vessels at the stone. With some manipulation it passed. I passed a 5 fr open ended and exchanged wire for stiff wire. There is very cloudy debris draining from left UO. I placed a 24 centimeter 6 Fr double J stent fairly easily. There is brisk efflux after placement. I placed a road runner wire up right ureter and had some resistance at the UPJ stone. With some manipulation it passed. I passed a 5 fr open ended but it cannot get passed the stone. I placed a 24 centimeter 6 Fr double J stent fairly easily. There is brisk efflux after placement. I left bladder empty and concluded case. I placed a belladonna and opium suppository for post-op pain. He transferred to recovery under my escort, in stable condition. Plan: in hospital admission for infectious complications. Pyridium for dysuria x 3 days flomax daily oral pain meds as needed iv antibiotics until cultures are returned. Plan stone surgery in about a week. ASA 2 clean contaminated case 47 seconds fluoro ceftriaxone and zosyn antibiotic earlier today in ER I attest to the content of the Intraoperative Record and any orders documented therein. Any exceptions are noted below.
--- NOTE | 2017-07-15 16:41 | Anesthesiology Progress Note ---
Anesthesia Post Op Note Date & Time Jul 15, 2017 at 16:41 Vital Signs Pain Intensity: 0 Vital Signs Past 12 Hours Date Time Temp Pulse Resp B/P (MAP) Pulse Ox O2 Delivery O2 Flow Rate FiO2 07/15/17 15:34 83 18 92 Room Air 07/15/17 14:42 167/108 (127) 07/15/17 14:19 81 20 170/114 95 07/15/17 13:58 83 28 146/91 93 07/15/17 13:44 83 28 07/15/17 13:20 146/91 07/15/17 13:14 85 27 93 07/15/17 13:08 183/117 07/15/17 12:44 78 22 94 07/15/17 12:39 174/113 07/15/17 12:30 17 07/15/17 12:00 22 07/15/17 11:30 91 18 98 07/15/17 11:00 82 22 98 07/15/17 10:48 195/124 07/15/17 10:05 69 16 07/15/17 10:00 68 17 95 07/15/17 09:59 167/109 07/15/17 09:50 72 07/15/17 09:18 36.7 59 18 199/122 99 Room Air Notes Mental Status: alert / awake / arousable, participated in evaluation Pt Amnestic to Procedure: Yes Nausea / Vomiting: adequately controlled Pain: adequately controlled Airway Patency, RR, SpO2: stable & adequate BP & HR: stable & adequate Hydration State: stable & adequate Anesthetic Complications: no major complications apparent
--- NOTE | 2017-07-15 16:48 | DIAGNOSTIC IMAGING REPORT ---
FLUOROSCOPIC IMAGES FROM BILATERAL RETROGRADE EXAMS CLINICAL HISTORY: BILATERAL STENT PLACEMENT COMPARISON STUDY: CT of the abdomen and pelvis July 15, 2017. Fluoroscopy time: 47 seconds. FINDINGS: 6 fluoroscopic images from bilateral retrograde exam were submitted for interpretation. Initial images demonstrate cannulation of the left ureter with suspected visualization of the left ureteral calculus shown on CT of July 15, 2017. Severe left hydroureteronephrosis is again noted. Probable left ureteral stent insertion is noted. Subsequent images demonstrate cannulation of the right ureter with severe right hydroureteronephrosis and possible visualization of the right ureteral calculus shown on prior CT although this is partially obscured by contrast. A right ureteral stent is in place. IMPRESSION: Fluoroscopic images from bilateral ureteral stent insertion. Electronically signed by: Michael Dasilva M.D. 07/15/2017 4:47 PM Dictated Date/Time: 07/15/2017 4:44 PM
--- NOTE | 2017-07-15 17:31 | Anesthesiology Progress Note ---
Anesthesia Post Op Note Date & Time Jul 15, 2017 at 17:31 Vital Signs Pain Intensity: 0 Vital Signs Past 12 Hours Date Time Temp Pulse Resp B/P (MAP) Pulse Ox O2 Delivery O2 Flow Rate FiO2 07/15/17 17:10 37.2 89 18 129/92 95 Nasal Cannula 2 07/15/17 16:55 88 16 128/90 95 Room Air 07/15/17 16:45 88 16 132/88 95 Room Air 07/15/17 16:35 75 16 120/82 100 Mask 10 07/15/17 16:28 36.9 78 16 117/78 16 Mask 10 07/15/17 15:34 83 18 92 Room Air 07/15/17 14:42 167/108 (127) 07/15/17 14:19 81 20 170/114 95 07/15/17 13:58 83 28 146/91 93 07/15/17 13:44 83 28 07/15/17 13:20 146/91 07/15/17 13:14 85 27 93 07/15/17 13:08 183/117 07/15/17 12:44 78 22 94 07/15/17 12:39 174/113 07/15/17 12:30 17 07/15/17 12:00 22 07/15/17 11:30 91 18 98 07/15/17 11:00 82 22 98 07/15/17 10:48 195/124 07/15/17 10:05 69 16 07/15/17 10:00 68 17 95 07/15/17 09:59 167/109 07/15/17 09:50 72 07/15/17 09:18 36.7 59 18 199/122 99 Room Air Notes Mental Status: alert / awake / arousable, participated in evaluation Pt Amnestic to Procedure: Yes Nausea / Vomiting: adequately controlled Pain: adequately controlled Airway Patency, RR, SpO2: stable & adequate BP & HR: stable & adequate Hydration State: stable & adequate Anesthetic Complications: no major complications apparent
[2017-07-15] MEDS ORDERED: LISINOPRIL 2.5 MG TAB PO ONE (18:20)
[2017-07-15] MEDS: LACTATED RINGER'S 1000ML 1,000 ML IV SCH (18:36)
[2017-07-15] MEDS: MoRPHine SULFATE 4 MG/ML 1 ML CARP\\VIAL IV PRN ×2 (19:47→23:53)
[2017-07-15] MEDS: PIPERACILL/TAZOBAC IV 3.375 GM in DEXTROSE 5% 100ML 100 ML IV SCH (20:19)
[2017-07-15] MEDS ORDERED: NICOTINE 14 MG/24 HR TDSY TD ONE (21:15)
[2017-07-15] MEDS: TAMSULOSIN HCL 0.4 MG CAP PO SCH (21:19)
[2017-07-15] MEDS: FAMOTIDINE IV INJ 20 MG in DEXTROSE 5% 100ML 100 ML IV SCH (21:19)
[2017-07-16] VITALS (7 sets, daily range): BP systolic 107–142; BP diastolic 72–93; PULSE 72–81; TEMP 36.9–37.1; O2SAT 93–97
[2017-07-16] MEDS: MoRPHine SULFATE 4 MG/ML 1 ML CARP\\VIAL IV PRN ×2 (02:57→09:41)
[2017-07-16] MEDS: PIPERACILL/TAZOBAC IV 3.375 GM in DEXTROSE 5% 100ML 100 ML IV SCH ×3 (02:58→19:51)
[2017-07-16] MEDS: LACTATED RINGER'S 1000ML 1,000 ML IV SCH ×3 (02:58→18:45)
[2017-07-16] MEDS ORDERED: POLYETHYLENE (MIRALAX) 17 GM PACK PO ONE (04:34)
[2017-07-16] MEDS ORDERED: DOCUSATE SODIUM 100 MG CAP PO ONE (04:34)
[2017-07-16] MEDS ORDERED: POLYETHYLENE (MIRALAX) 17 GM PACK PO PRN (04:45)
[2017-07-16 06:51] LABS: HEMATOCRIT 39.7 % (42-52); MEAN CELL VOLUME 96.4 fL (80-100); MEAN CORPUSCULAR HEMOGLOBIN 33.3 pg (25-34); MEAN CORPUSCULAR HGB CONC 34.5 g/dl (32-36); MEAN PLATELET VOLUME 10.3 fL (7.4-10.4); PLATELET COUNT 215 K/uL (130-400); RED BLOOD COUNT 4.12 M/uL (4.7-6.1); WHITE BLOOD COUNT 16.68 K/uL (4.8-10.8)
[2017-07-16 07:24] LABS: BUN/CREATININE RATIO 11.7 (10-20); CALCIUM 9.2 mg/dl (8.5-10.1); CREATININE 1.7 mg/dl (0.60-1.40); POTASSIUM 4.3 mmol/L (3.5-5.1)
[2017-07-16] MEDS: FAMOTIDINE IV INJ 20 MG in DEXTROSE 5% 100ML 100 ML IV SCH ×2 (08:56→19:51)
[2017-07-16] MEDS: LISINOPRIL 2.5 MG TAB PO SCH (08:56)
[2017-07-16] MEDS: NICOTINE 14 MG/24 HR TDSY TD SCH (08:56)
--- NOTE | 2017-07-16 09:05 | ECHOCARDIOGRAM REPORT ---
*NOTICE TO RECEIVING [employer]Y This information is strictly Confidential and protected under [place] law. [place] law prohibits you from making any further disclosure of this information unless further disclosure is expressly permitted by the written consent of the person to whom it pertains or is authorized by law. A general authorization for the release of medical or other information is not sufficient for this purpose. Hospital accepts no responsibility if the information is made available to any other person, INCLUDING THE PATIENT. Interpretation Summary * Name: KRISTIE MARTINEZ Study Date: 07/16/2017 07:15 AM BP: 170/114 mmHg * Patient Location: C.2T\S\E222\S\1 HR: 81 * : 1955 (M/d/yyyy) Gender: Male Height: 73 in * Age: 62 yrs Ethnicity: CA Weight: 166 lb * Ordering Physician: Kwadwo Black * Referring Physician: Self, Referred * Performed By: Gregorio Aguilar RCS * * Reason For Study: Cardiomegaly * BSA: 2.0 m2 * -- Conclusions -- * The left ventricle is normal in size. * There is mild concentric left ventricular hypertrophy. * Left ventricular systolic function is normal. * The left ventricular wall motion is normal. * Ejection Fraction = 60-65%. * Borderline right atrial enlargement. * Borderline right ventricular enlargement. * There is mild tricuspid regurgitation. * Right ventricular systolic pressure is elevated at 30-40mmHg. * There is no pericardial effusion. Procedure Details * A complete two-dimensional transthoracic echocardiogram was performed (2D, M-mode, Doppler and color flow Doppler). Left Ventricle * The left ventricle is normal in size. * There is mild concentric left ventricular hypertrophy. * Left ventricular systolic function is normal. * Ejection Fraction = 60-65%. * The left ventricular wall motion is normal. Right Ventricle * Borderline right ventricular enlargement. * The right ventricular systolic function is normal. Atria * The left atrial size is normal. * Borderline right atrial enlargement. * No ASD detected; PFO is not assessed. Mitral Valve * The mitral valve anatomy is normal. * There is no mitral valve stenosis. * There is trace mitral regurgitation. Tricuspid Valve * The tricuspid valve anatomy is normal. * There is no tricuspid stenosis. * There is mild tricuspid regurgitation. * Right ventricular systolic pressure is elevated at 30-40mmHg. Aortic Valve * The aortic valve is trileaflet. * No hemodynamically significant valvular aortic stenosis. * No aortic regurgitation is present. Pulmonic Valve * The pulmonic valve is not well visualized. Great Vessels * Mild aortic root dilatation. * Ascending aorta of normal dimension Pericardium/Pleural * There is no pericardial effusion. Great Vessels * Normal inferior vena cava diameter and respiratory variation suggests normal central venous pressure. MMode 2D Measurements and Calculations IVSd 1.1 cm IVSs 1.2 cm LVIDd 4.2 cm LVIDs 2.8 cm LVPWd 1.1 cm LVPWs 1.1 cm IVS/LVPW 1.0 FS 32.0 % EDV(Teich) 76.7 ml ESV(Teich) 30.3 ml EF(Teich) 60.5 % EDV(cubed) 71.9 ml ESV(cubed) 22.7 ml EF(cubed) 68.5 % % IVS thick 14.2 % % LVPW thick 4.9 % LV mass(C)d 149.0 grams LV mass(C)dI 74.9 grams/m\S\2 LV mass(C)s 97.2 grams LV mass(C)sI 48.9 grams/m\S\2 SV(Teich) 46.4 ml SI(Teich) 23.3 ml/m\S\2 SV(cubed) 49.2 ml SI(cubed) 24.8 ml/m\S\2 Ao root diam 4.0 cm Ao root area 12.3 cm\S\2 ACS 1.8 cm LA dimension 4.1 cm asc Aorta Diam 3.5 cm LA/Ao 1.0 Doppler Measurements and Calculations MV E max andrew 77.3 cm/sec MV A max andrew 65.4 cm/sec MV E/A 1.2 MV P1/2t max andrew 84.4 cm/sec MV P1/2t 88.8 msec MVA(P1/2t) 2.5 cm\S\2 MV dec slope 278.5 cm/sec\S\2 MV dec time 0.26 sec Ao V2 max 130.1 cm/sec Ao max PG 6.8 mmHg Ao max PG (full) 2.1 mmHg LV V1 max PG 4.7 mmHg LV V1 max 108.4 cm/sec PA V2 max 90.6 cm/sec PA max PG 3.3 mmHg TR max andrew 271.8 cm/sec
[2017-07-16] MEDS: PHENAZOPYRIDINE HCL 200 MG TAB PO PRN ×2 (09:40→15:15)
--- NOTE | 2017-07-16 10:33 | Anesthesiology Progress Note ---
Anesthesia Post Op Note Date & Time Jul 16, 2017 at 10:32 Vital Signs Pain Intensity: 7.0 Vital Signs Past 12 Hours Date Time Temp Pulse Resp B/P (MAP) Pulse Ox O2 Delivery O2 Flow Rate FiO2 07/16/17 09:44 116/ (38) 07/16/17 08:00 Room Air 07/16/17 07:58 36.9 80 18 107/72 (84) 95 Room Air 07/16/17 04:00 93 Nasal Cannula 2.0 07/16/17 04:00 36.9 81 18 112/76 (88) 94 Nasal Cannula 2.0 07/15/17 23:59 93 Nasal Cannula 2.0 07/15/17 23:30 37.2 91 22 128/90 (103) 93 Nasal Cannula 2.0 Notes Mental Status: alert / awake / arousable, participated in evaluation Pt Amnestic to Procedure: Yes Nausea / Vomiting: adequately controlled Pain: adequately controlled Airway Patency, RR, SpO2: stable & adequate BP & HR: stable & adequate Hydration State: stable & adequate Anesthetic Complications: no major complications apparent
--- NOTE | 2017-07-16 15:50 | Progress Note ---
Subjective Date of Service: Jul 16, 2017. Subjective Pt evaluation today including: conversation w/ patient, physical exam, chart review, lab review, conversation w/ application support consultant Voiding: no voiding problems Urine is bloody. No pain, constipated. No fever. I discussed stents and the bladder irritation and gross hematuria they cause. he is on [place] Problem List Medical Problems: (1) Hydronephrosis Status: Acute (2) Ureterolithiasis Status: Acute (3) UTI (urinary tract infection) Status: Acute Review of Systems Constitutional: + fatigue, No fever, No chills, No sweats ENT: + dental problems Cardiac: No chest pain, No palpitations Abdomen: + constipation, No nausea, No vomiting, No diarrhea Male : + dysuria, + urinary frequency, + hematuria Endo: + fatigue, + excessive thirst Objective Vital Signs Date Time Temp Pulse Resp B/P (MAP) Pulse Ox O2 Delivery O2 Flow Rate FiO2 07/16/17 12:00 Room Air 07/16/17 11:27 37.1 74 20 114/75 (88) 97 07/16/17 10:39 Nasal Cannula 07/16/17 08:45 116/85 (95) 07/16/17 08:45 116/85 (95) 07/16/17 08:00 Room Air 07/16/17 07:58 36.9 80 18 107/72 (84) 95 Room Air 07/16/17 04:00 93 Nasal Cannula 2.0 07/16/17 04:00 36.9 81 18 112/76 (88) 94 Nasal Cannula 2.0 07/15/17 23:59 93 Nasal Cannula 2.0 07/15/17 23:30 37.2 91 22 128/90 (103) 93 Nasal Cannula 2.0 07/15/17 20:30 88 22 142/99 (113) 91 Room Air 07/15/17 20:00 94 Room Air 07/15/17 20:00 82 22 145/97 (113) 93 Room Air 07/15/17 19:30 93 22 124/73 (90) 94 Room Air 07/15/17 19:05 143/61 (88) 07/15/17 19:00 77 22 168/110 (129) 96 Room Air 07/15/17 18:34 75 16 170/107 (128) 92 Room Air 07/15/17 18:04 36.8 78 16 160/109 (126) 96 Nasal Cannula 2.0 07/15/17 17:35 95 Nasal Cannula 2.0 07/15/17 17:35 95 Room Air 07/15/17 17:35 36.8 96 20 137/91 (106) 95 Room Air 07/15/17 17:10 37.2 89 18 129/92 95 Nasal Cannula 2 07/15/17 16:55 88 16 128/90 95 Room Air 07/15/17 16:45 88 16 132/88 95 Room Air 07/15/17 16:35 75 16 120/82 100 Mask 10 07/15/17 16:28 36.9 78 16 117/78 16 Mask 10 Physical Exam General Appearance: WD/WN, no apparent distress, + thin ENT: hearing grossly normal Neck: supple Respiratory/Chest: normal breath sounds, no respiratory distress, no accessory muscle use Extremities: normal inspection, no pedal edema, no calf tenderness Neurologic/Psychiatric: alert, normal mood/affect, oriented x 3 Skin: normal color, warm/dry, no rash Lymphatic: no adenopathy Laboratory Results Last 24 Hours Test 07/16/17 06:26 White Blood Count 16.68 K/uL Red Blood Count 4.12 M/uL Hemoglobin 13.7 g/dL Hematocrit 39.7 % Mean Corpuscular Volume 96.4 fL Mean Corpuscular Hemoglobin 33.3 pg Mean Corpuscular Hemoglobin Concent 34.5 g/dl RDW Standard Deviation 47.0 fL RDW Coefficient of Variation 13.3 % Platelet Count 215 K/uL Mean Platelet Volume 10.3 fL Sodium Level 141 mmol/L Potassium Level 4.3 mmol/L Chloride Level 106 mmol/L Carbon Dioxide Level 24 mmol/L Anion Gap 11.0 mmol/L Blood Urea Nitrogen 20 mg/dl Creatinine 1.70 mg/dl Est Creatinine Clear Calc Drug Dose 49.0 ml/min Estimated GFR () 49.7 Estimated GFR (Non- 42.9 BUN/Creatinine Ratio 11.7 Random Glucose 135 mg/dl Calcium Level 9.2 mg/dl Assessment and Plan bilateral obstructing ureteral stones cr slightly worse. i expect it might improve tomorrow. He did receive a dye load for ct scan. Non oliguric renal insufficiency. support. uti- strep in urine. change abt once sensitivities returned. 2 week course plan bilateral ureteroscopy with laser lithotripsy in 2 weeks as outpatient.
--- NOTE | 2017-07-16 16:49 | Progress Note ---
Internal Med Progress Note Date of Service: Jul 16, 2017. Provider Documentation: SUBJECTIVE: patient s/p stent. denies abdominal pain or pain with urination. denies chest pain or shortness of breath OBJECTIVE: General Appearance: no acute distress Head: normocephalic, atraumatic Eyes: normal inspection, PERRL, EOMI, sclerae normal ENT: hearing grossly normal Neck: no JVD, trachea midline Respiratory/Chest: lungs clear, no respiratory distress, no accessory muscle use Cardiovascular: regular rate, rhythm, no edema, no JVD, + gallop/S4 Abdomen/GI: + bowel sounds, nontender to palpation Extremities: normal inspection, no calf tenderness, no pedal edema Neurologic/Psych: no motor/sensory deficits, alert, normal mood/affect, oriented Skin: normal color, warm/dry, no rash Lymphatic: no adenopathy (cervical) ASSESSMENT & PLAN: 62 year old M with presented with abdominal pain, and CT abdominal findings as below with significant finding for bilateral obstructing ureteral stones, s/p stent cysto bilateral stent placement on 07/15/2017 ABD/PELVIS IV CONTRAST ONLY "IMPRESSION: 1. Bilateral obstructing ureteral calculi measuring 11 mm in the proximal right ureter and 8 mm in the mid left ureter. Resultant severe bilateral hydroureteronephrosis. Additional bilateral nephrolithiasis. The presence of extensive left perinephric fluid suggests calyceal rupture. 2. Extensive peripancreatic fluid along the tail. This could be secondary to left renal calyceal rupture versus acute interstitial edematous pancreatitis. Correlate with lipase. 3. Prostatomegaly with chronic bladder outlet obstruction" Patient currently is post op stent placement and making urine, currently followed by urology post op, and has been receiving Zosyn IV q8 hours for urinary tract infection with urine cultures for Strep, with some elevations in creatinine from 1.4 to 1.7, pharmacy aware, currently GFR stable so continue Zosyn 3.375 q8 hours, on tamsulosin to avoid urinary retention on Pyridium TID prn for bladder pain, and narcotics prn for abdominal/bladder discomfort if needed, bowel regimen with miralax initially hypertensive on admission and placed on telemetry monitoring, blood pressure control with low dose lisinopril and IV labetalol prn, will discontinue telemetry Transthoracic echo: The left ventricle is normal in size. There is mild concentric left ventricular hypertrophy. Left ventricular systolic function is normal. The left ventricular wall motion is normal. Ejection Fraction = 60-65%. Borderline right atrial enlargement. Borderline right ventricular enlargement. There is mild tricuspid regurgitation. Right ventricular systolic pressure is elevated at 30-40mmHg. There is no pericardial effusion. 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 Case management at [facility] to assist with patient's socio- economic issues when stable for hospital discharge Vital Signs: Date Time Temp Pulse Resp B/P (MAP) Pulse Ox O2 Delivery O2 Flow Rate FiO2 07/16/17 16:41 Room Air 07/16/17 16:41 37.1 75 16 133/91 (105) 96 07/16/17 12:00 Room Air 07/16/17 11:27 37.1 74 20 114/75 (88) 97 07/16/17 10:39 Nasal Cannula 07/16/17 08:45 116/85 (95) 07/16/17 08:45 116/85 (95) 07/16/17 08:00 Room Air 07/16/17 07:58 36.9 80 18 107/72 (84) 95 Room Air 07/16/17 04:00 93 Nasal Cannula 2.0 07/16/17 04:00 36.9 81 18 112/76 (88) 94 Nasal Cannula 2.0 07/15/17 23:59 93 Nasal Cannula 2.0 07/15/17 23:30 37.2 91 22 128/90 (103) 93 Nasal Cannula 2.0 07/15/17 20:30 88 22 142/99 (113) 91 Room Air 07/15/17 20:00 94 Room Air 07/15/17 20:00 82 22 145/97 (113) 93 Room Air 07/15/17 19:30 93 22 124/73 (90) 94 Room Air 07/15/17 19:05 143/61 (88) 07/15/17 19:00 77 22 168/110 (129) 96 Room Air 07/15/17 18:34 75 16 170/107 (128) 92 Room Air 07/15/17 18:04 36.8 78 16 160/109 (126) 96 Nasal Cannula 2.0 07/15/17 17:35 95 Nasal Cannula 2.0 07/15/17 17:35 95 Room Air 07/15/17 17:35 36.8 96 20 137/91 (106) 95 Room Air 07/15/17 17:10 37.2 89 18 129/92 95 Nasal Cannula 2 Lab Results: Results Past 24 Hours Test 07/16/17 06:26 Range/Units White Blood Count 16.68 4.8-10.8 K/uL Red Blood Count 4.12 4.7-6.1 M/uL Hemoglobin 13.7 14.0-18.0 g/dL Hematocrit 39.7 42-52 % Mean Corpuscular Volume 96.4 80-100 fL Mean Corpuscular Hemoglobin 33.3 25-34 pg Mean Corpuscular Hemoglobin Concent 34.5 32-36 g/dl RDW Standard Deviation 47.0 36.4-46.3 fL RDW Coefficient of Variation 13.3 11.5-14.5 % Platelet Count 215 130-400 K/uL Mean Platelet Volume 10.3 7.4-10.4 fL Sodium Level 141 136-145 mmol/L Potassium Level 4.3 3.5-5.1 mmol/L Chloride Level 106 98-107 mmol/L Carbon Dioxide Level 24 21-32 mmol/L Anion Gap 11.0 3-11 mmol/L Blood Urea Nitrogen 20 7-18 mg/dl Creatinine 1.70 0.60-1.40 mg/dl Est Creatinine Clear Calc Drug Dose 49.0 ml/min Estimated GFR () 49.7 Estimated GFR (Non- 42.9 BUN/Creatinine Ratio 11.7 10-20 Random Glucose 135 70-99 mg/dl Calcium Level 9.2 8.5-10.1 mg/dl
[2017-07-16] MEDS: TAMSULOSIN HCL 0.4 MG CAP PO SCH (19:52)
[2017-07-17] VITALS (7 sets, daily range): BP systolic 113–131; BP diastolic 66–89; PULSE 67–74; TEMP 36.5–37; O2SAT 91–94
[2017-07-17] MEDS ORDERED: LISINOPRIL 2.5 MG TAB PO SCH
[2017-07-17] MEDS ORDERED: PHENAZOPYRIDINE HCL 200 MG TAB PO SCH
[2017-07-17] MEDS: LACTATED RINGER'S 1000ML 1,000 ML IV SCH ×2 (02:40→11:30)
[2017-07-17] MEDS: PIPERACILL/TAZOBAC IV 3.375 GM in DEXTROSE 5% 100ML 100 ML IV SCH ×2 (03:50→11:31)
[2017-07-17 06:09] LABS: BASO % 0.4 %; BASO ABS # 0.05 K/uL (0-0.2); COMPLETE YES; EOS % 2.3 %; HEMATOCRIT 39.1 % (42-52); IG% 0.3 %; LYMPH % 24.7 %; MEAN CELL VOLUME 96.3 fL (80-100); MEAN CORPUSCULAR HEMOGLOBIN 32.3 pg (25-34); MEAN CORPUSCULAR HGB CONC 33.5 g/dl (32-36); MEAN PLATELET VOLUME 10.2 fL (7.4-10.4); MONO % 7.1 %; NEUT % 65.2 %; PLATELET COUNT 200 K/uL (130-400); RED BLOOD COUNT 4.06 M/uL (4.7-6.1); WHITE BLOOD COUNT 11.75 K/uL (4.8-10.8)
[2017-07-17 06:59] LABS: BUN/CREATININE RATIO 12.8 (10-20); CALCIUM 9.1 mg/dl (8.5-10.1); CREATININE 1.3 mg/dl (0.60-1.40); POTASSIUM 4.2 mmol/L (3.5-5.1)
[2017-07-17 07:03] LABS: ALB/GLOB RATIO 0.9 (0.9-2)
[2017-07-17] MEDS: NICOTINE 14 MG/24 HR TDSY TD SCH (08:00)
[2017-07-17] MEDS ORDERED: DOCUSATE SODIUM 100 MG CAP PO SCH (08:00)
[2017-07-17] MEDS: FAMOTIDINE IV INJ 20 MG in DEXTROSE 5% 100ML 100 ML IV SCH (08:00)
[2017-07-17] MEDS: PHENAZOPYRIDINE HCL 200 MG TAB PO PRN (08:40)
[2017-07-17] MEDS: LISINOPRIL 2.5 MG TAB PO SCH (08:41)
--- NOTE | 2017-07-17 13:56 | Progress Note ---
Progress Note Date of Service Jul 17, 2017. Progress Note ID Consult Dictated #[id number] A/P: 1. UTI - E. faecalis, bll obstructing stones -Continue augmentin, agree with 14 day course and urology follow up post d/c -No contraindication to d/c from ID standpoint -thank you
--- NOTE | 2017-07-17 14:16 | INFECT. DISEASE CONSULTATION ---
DATE OF CONSULTATION: 07/17/2017 REQUESTING PHYSICIAN: Dr. Gloria. HISTORY OF PRESENT ILLNESS: This is a 62-year-old gentleman who was admitted after he developed lower abdominal pain, which began earlier during that day. He did have a CAT scan in the Emergency Room which showed bilateral obstructing calculi with an 11 mm stone on the right and an 8 mm stone on the left. He had hydroureter and hydronephrosis bilaterally. As part of his workup, blood and urine cultures were obtained. His urinalysis had greater than 30 WBCs and 1+ bacteria. His urine culture grew Enterococcus faecalis which was intermediate to Cipro only. Blood cultures from admission are negative. He was seen by urology and was taken to the operating room where he underwent bilateral stent placement. Intraoperative cultures were obtained and are growing a strep species, which has not yet been identified. The patient does admit to some burning urine that is persisting; however, he states his abdominal pain has overall improved greatly. He denies any fevers or chills. He has no chest pain, cough, shortness of breath, nausea, vomiting or diarrhea. He does have some discoloration to his urine. He states his appetite is poor, but this is chronic. He was initially on Zosyn and was transitioned to Augmentin. He is tolerating this well. He does have plans to follow up with urology in 2 weeks' time for lithotripsy and potential stent removal. He is currently out of bed to chair. Infectious diseases was consulted for urinary tract infection. All remaining review of systems are reviewed and are unremarkable. PAST MEDICAL HISTORY: Significant for hypertension. PAST SURGICAL HISTORY: Significant for an ORIF of the right hip and bilateral ureteral stent placement this admission. FAMILY HISTORY: Noncontributory. SOCIAL HISTORY: Significant for tobacco use daily. He denies any alcohol or drug use. He states he is currently living at a halfway. ALLERGIES: He has no known drug allergies. CURRENT MEDICATIONS: Include Augmentin, Colace, lisinopril, nicotine patch, MiraLax, Pepcid, Flomax, Pyridium, morphine, labetalol and Zofran. PHYSICAL EXAMINATION: VITAL SIGNS: He is afebrile, pulse 70, respiratory rate 18, blood pressure 119/77, oxygen saturation is 92% on room air. GENERAL: He is awake, alert and oriented x3, he is in no acute distress. HEENT: Mucous membranes are moist. Extraocular muscles are intact. HEART: Regular. LUNGS: Clear to auscultation bilaterally. ABDOMEN: Soft, nontender, nondistended. There is no flank tenderness bilaterally. SKIN: Without rash. EXTREMITIES: There is no lower extremity edema. LABORATORY STUDIES: CBC today reveals a white blood cell count of 11.7, down from 16.6 yesterday. Hemoglobin 13.1, platelets are 200. Chemistry panel reveals a sodium of 141, potassium 4.2, chloride 107, bicarb 28, BUN 17, creatinine 1.3 and glucose 91. LFTs are within normal limits. Again, a urinalysis in the ER had large leukocyte esterase, greater than 30 WBCs, and +1 bacteria. Urine culture from the 2nd, both from a voided specimen and now from the OR is growing Enterococcus faecalis with intermediate sensitivities to Cipro and otherwise pansensitive. Blood cultures from the 2nd are no growth to date x2 sets. CT of the abdomen and pelvis is as above. A chest x-ray showed atelectasis. ASSESSMENT AND PLAN: Urinary tract infection with Enterococcus faecalis with likely infected stones. He is on appropriate antibiotics and appears to be tolerating these well. He did have stents placed. I agree with urology that he should have a minimum of 14 days of antibiotics. Augmentin would be appropriate. He does have a urologic evaluation scheduled on an outpatient basis for ongoing care. Thank you for this consultation.
--- NOTE | 2017-07-17 15:33 | Progress Note ---
Internal Med Progress Note Date of Service: Jul 17, 2017. Provider Documentation: SUBJECTIVE: patient continues to make urine without assistance of a salguero. reports that he feels burning sensation with urinating and urinary stream not as strong. Denies abdominal pain, back pain. Denies chest pain or shortness of breath OBJECTIVE: General Appearance: no acute distress Head: normocephalic, atraumatic Eyes: normal inspection, EOMI ENT: hearing grossly normal Neck: no JVD, trachea midline Respiratory/Chest: lungs clear, no respiratory distress, no accessory muscle use Cardiovascular: regular rate, rhythm, no edema, no JVD, + gallop/S4 Abdomen/GI: + bowel sounds, nontender to palpation Extremities: normal inspection, no calf tenderness, no pedal edema Neurologic/Psych: no motor/sensory deficits, alert, normal mood/affect, oriented Skin: normal color, warm/dry, no rash ASSESSMENT & PLAN: 62 year old M with presented with abdominal pain, and CT abdominal findings as below with significant finding for bilateral obstructing ureteral stones, s/p stent cysto bilateral stent placement on 07/15/2017 ABD/PELVIS IV CONTRAST 07/15/2017 "IMPRESSION: 1. Bilateral obstructing ureteral calculi measuring 11 mm in the proximal right ureter and 8 mm in the mid left ureter. Resultant severe bilateral hydroureteronephrosis. Additional bilateral nephrolithiasis. The presence of extensive left perinephric fluid suggests calyceal rupture. 2. Extensive peripancreatic fluid along the tail. This could be secondary to left renal calyceal rupture versus acute interstitial edematous pancreatitis. Correlate with lipase. 3. Prostatomegaly with chronic bladder outlet obstruction" Patient currently is post op stent placement on 07/15/2017 and had been receiving Zosyn IV q8 hours for urinary tract infection with urine cultures for Strep with subsequent culture reporting E.faecalis sensitive to Beta- lactams. Was switched to Augmentin 875 mg BID on 07/17/2017. However based on patient's financial constraints, amoxicillin 500 mg TID is a cheaper substitute on tamsulosin to avoid urinary retention. continue this medication have been on Pyridium TID prn for bladder pain, and narcotics prn for abdominal/ bladder discomfort if needed, bowel regimen with miralax; will continue prn meds as outpatient except for narcotics initially hypertensive on admission and placed on telemetry monitoring, blood pressure control with low dose lisinopril and IV labetalol prn, will continue low dose lisinopril as outpatient Transthoracic echo: The left ventricle is normal in size. There is mild concentric left ventricular hypertrophy. Left ventricular systolic function is normal. The left ventricular wall motion is normal. Ejection Fraction = 60-65%. Borderline right atrial enlargement. Borderline right ventricular enlargement. There is mild tricuspid regurgitation. Right ventricular systolic pressure is elevated at 30-40mmHg. There is no pericardial effusion. DVT prophylaxis: SCD Social issues: patient has outside case planner Nerissarancho lAlen [phone], or [phone]. Disposition: patient to be discharged with medications including antibiotics of amoxicillin 500 mg TID for 14 days for urinary tract infection patient has discharge appointment to see primary care doctor associated with Dr. Marko Ponce on [address] [place] [address] in [place], [place] on 2016 at 12:45 PM (telephone number ) In addition will need referral from the primary doctor to follow up with Dr. Gloria Dubois urology physician who had placed the uretal stents while inpatient. Her Pager: . There are possible plans for bilateral ureteroscopy with laser lithotripsy in 2 weeks as outpatient for this patient with this urology physician Vital Signs: Date Time Temp Pulse Resp B/P (MAP) Pulse Ox O2 Delivery O2 Flow Rate FiO2 07/17/17 16:00 91 Room Air 07/17/17 14:56 37.0 73 18 131/89 (103) 94 Room Air 07/17/17 08:30 92 Room Air 07/17/17 08:11 Room Air 07/17/17 07:50 Room Air 07/17/17 07:30 36.8 70 18 119/77 (91) 92 Room Air 07/17/17 00:20 36.5 67 18 113/66 (82) 91 Room Air 07/17/17 00:00 Room Air 07/16/17 20:00 Room Air 07/16/17 19:30 36.9 72 20 142/93 (109) 94 Room Air 07/16/17 16:41 Room Air 07/16/17 16:41 37.1 75 16 133/91 (105) 96 Lab Results: Results Past 24 Hours Test 07/17/17 05:57 Range/Units White Blood Count 11.75 4.8-10.8 K/uL Red Blood Count 4.06 4.7-6.1 M/uL Hemoglobin 13.1 14.0-18.0 g/dL Hematocrit 39.1 42-52 % Mean Corpuscular Volume 96.3 80-100 fL Mean Corpuscular Hemoglobin 32.3 25-34 pg Mean Corpuscular Hemoglobin Concent 33.5 32-36 g/dl Platelet Count 200 130-400 K/uL Mean Platelet Volume 10.2 7.4-10.4 fL Neutrophils (%) (Auto) 65.2 % Lymphocytes (%) (Auto) 24.7 % Monocytes (%) (Auto) 7.1 % Eosinophils (%) (Auto) 2.3 % Basophils (%) (Auto) 0.4 % Neutrophils # (Auto) 7.66 1.4-6.5 K/uL Lymphocytes # (Auto) 2.90 1.2-3.4 K/uL Monocytes # (Auto) 0.84 0.11-0.59 K/uL Eosinophils # (Auto) 0.27 0-0.5 K/uL Basophils # (Auto) 0.05 0-0.2 K/uL RDW Standard Deviation 47.0 36.4-46.3 fL RDW Coefficient of Variation 13.3 11.5-14.5 % Immature Granulocyte % (Auto) 0.3 % Immature Granulocyte # (Auto) 0.03 0.00-0.02 K/uL Sodium Level 141 136-145 mmol/L Potassium Level 4.2 3.5-5.1 mmol/L Chloride Level 107 98-107 mmol/L Carbon Dioxide Level 28 21-32 mmol/L Anion Gap 6.0 3-11 mmol/L Blood Urea Nitrogen 17 7-18 mg/dl Creatinine 1.30 0.60-1.40 mg/dl Est Creatinine Clear Calc Drug Dose 64.1 ml/min Estimated GFR () 68.7 Estimated GFR (Non- 59.3 BUN/Creatinine Ratio 12.8 10-20 Random Glucose 91 70-99 mg/dl Calcium Level 9.1 8.5-10.1 mg/dl Total Bilirubin 0.6 0.2-1 mg/dl Aspartate Amino Transf (AST/SGOT) 16 15-37 U/L Alanine Aminotransferase (ALT/SGPT) 18 12-78 U/L Alkaline Phosphatase 65 45-117 U/L Total Protein 6.1 6.4-8.2 gm/dl Albumin 2.9 3.4-5.0 gm/dl Globulin 3.2 2.5-4.0 gm/dl Albumin/Globulin Ratio 0.9 0.9-2
--- NOTE | 2017-07-17 15:47 | Progress Note ---
Subjective Date of Service: Jul 17, 2017. Subjective Pt evaluation today including: conversation w/ patient, physical exam, lab review Voiding: no voiding problems patient feels well. no fever. urine still light pink bloody. He still is bothered by stents. His urine is growing enterococcus faecalis. He informs me he has no insurance no money and no job. He is struggling to get a certificate to start the process of applying for public assistance. Problem List Medical Problems: (1) Hydronephrosis Status: Acute (2) Ureterolithiasis Status: Acute (3) UTI (urinary tract infection) Status: Acute Review of Systems Constitutional: + fatigue, No fever, No chills, No sweats, No weakness Respiratory: No cough, No sputum, No shortness of breath Cardiac: No chest pain Abdomen: No nausea, No vomiting, No diarrhea Male : + dysuria, + urinary frequency, + nocturia more than once/night, + hematuria Objective Vital Signs Date Time Temp Pulse Resp B/P (MAP) Pulse Ox O2 Delivery O2 Flow Rate FiO2 07/17/17 14:56 37.0 73 18 131/89 (103) 94 Room Air 07/17/17 08:30 92 Room Air 07/17/17 08:11 Room Air 07/17/17 07:50 Room Air 07/17/17 07:30 36.8 70 18 119/77 (91) 92 Room Air 07/17/17 00:20 36.5 67 18 113/66 (82) 91 Room Air 07/17/17 00:00 Room Air 07/16/17 20:00 Room Air 07/16/17 19:30 36.9 72 20 142/93 (109) 94 Room Air 07/16/17 16:41 Room Air 07/16/17 16:41 37.1 75 16 133/91 (105) 96 07/16/17 16:00 Room Air Physical Exam General Appearance: WD/WN, no apparent distress, + thin Eyes: normal inspection ENT: hearing grossly normal Respiratory/Chest: normal breath sounds, no respiratory distress, no accessory muscle use Neurologic/Psychiatric: alert, normal mood/affect, oriented x 3 Skin: normal color, warm/dry, no rash Laboratory Results Last 24 Hours Test 07/17/17 05:57 White Blood Count 11.75 K/uL Red Blood Count 4.06 M/uL Hemoglobin 13.1 g/dL Hematocrit 39.1 % Mean Corpuscular Volume 96.3 fL Mean Corpuscular Hemoglobin 32.3 pg Mean Corpuscular Hemoglobin Concent 33.5 g/dl Platelet Count 200 K/uL Mean Platelet Volume 10.2 fL Neutrophils (%) (Auto) 65.2 % Lymphocytes (%) (Auto) 24.7 % Monocytes (%) (Auto) 7.1 % Eosinophils (%) (Auto) 2.3 % Basophils (%) (Auto) 0.4 % Neutrophils # (Auto) 7.66 K/uL Lymphocytes # (Auto) 2.90 K/uL Monocytes # (Auto) 0.84 K/uL Eosinophils # (Auto) 0.27 K/uL Basophils # (Auto) 0.05 K/uL RDW Standard Deviation 47.0 fL RDW Coefficient of Variation 13.3 % Immature Granulocyte % (Auto) 0.3 % Immature Granulocyte # (Auto) 0.03 K/uL Sodium Level 141 mmol/L Potassium Level 4.2 mmol/L Chloride Level 107 mmol/L Carbon Dioxide Level 28 mmol/L Anion Gap 6.0 mmol/L Blood Urea Nitrogen 17 mg/dl Creatinine 1.30 mg/dl Est Creatinine Clear Calc Drug Dose 64.1 ml/min Estimated GFR () 68.7 Estimated GFR (Non- 59.3 BUN/Creatinine Ratio 12.8 Random Glucose 91 mg/dl Calcium Level 9.1 mg/dl Total Bilirubin 0.6 mg/dl Aspartate Amino Transf (AST/SGOT) 16 U/L Alanine Aminotransferase (ALT/SGPT) 18 U/L Alkaline Phosphatase 65 U/L Total Protein 6.1 gm/dl Albumin 2.9 gm/dl Globulin 3.2 gm/dl Albumin/Globulin Ratio 0.9 Assessment and Plan bilateral obstructing ureteral stones cr improve today. uti- enterococcus in urine. ID recommends augmentin,. He might have difficulty affording this. plan bilateral ureteroscopy with laser lithotripsy in 2 weeks as outpatient.
[2017-07-17] MEDS ORDERED: AMX500 OR (16:40)
[2017-07-17] MEDS ORDERED: LSN25 PO (16:42)
[2017-07-17] MEDS ORDERED: PHEN-1043 PO (16:42)
[2017-07-17] MEDS ORDERED: FLM4 PO (16:42)
--- NOTE | 2017-07-17 16:47 | Discharge Instructions ---
Discharge Instructions Date of Service Jul 17, 2017. Admission Reason for Admission: Hypertensive Urgency,Ureteral Calculi Discharge Discharge Diagnosis / Problem: bilateral obstructing ureteral stones, s/p stent cysto bilateral stent, UTI Discharge Goals Goal(s): Decrease discomfort, Improve function, Improve disease control Activity Recommendations Activity Limitations: per Instructions/Follow-up section Lifting Limitations: until after follow-up appointment Exercise/Sports Limitations: until after follow-up appointment Driving or Machine Use: no limitations . Instructions / Follow-Up Instructions / Follow-Up 62 year old M with presented with abdominal pain, and CT abdominal findings as below with significant finding for bilateral obstructing ureteral stones, s/p stent cysto bilateral stent placement on 07/15/2017 ABD/PELVIS IV CONTRAST 07/15/2017 "IMPRESSION: 1. Bilateral obstructing ureteral calculi measuring 11 mm in the proximal right ureter and 8 mm in the mid left ureter. Resultant severe bilateral hydroureteronephrosis. Additional bilateral nephrolithiasis. The presence of extensive left perinephric fluid suggests calyceal rupture. 2. Extensive peripancreatic fluid along the tail. This could be secondary to left renal calyceal rupture versus acute interstitial edematous pancreatitis. Correlate with lipase. 3. Prostatomegaly with chronic bladder outlet obstruction" Patient currently is post op stent placement on 07/15/2017 and had been receiving Zosyn IV q8 hours for urinary tract infection with urine cultures for Strep with subsequent culture reporting E.faecalis sensitive to Beta- lactams. Was switched to Augmentin 875 mg BID on 07/17/2017. However based on patient's financial constraints, amoxicillin 500 mg TID is a cheaper substitute on tamsulosin to avoid urinary retention. continue this medication have been on Pyridium TID prn for bladder pain, and narcotics prn for abdominal/ bladder discomfort if needed, bowel regimen with miralax; will continue prn meds as outpatient except for narcotics initially hypertensive on admission and placed on telemetry monitoring, blood pressure control with low dose lisinopril and IV labetalol prn, will continue low dose lisinopril as outpatient Transthoracic echo: The left ventricle is normal in size. There is mild concentric left ventricular hypertrophy. Left ventricular systolic function is normal. The left ventricular wall motion is normal. Ejection Fraction = 60-65%. Borderline right atrial enlargement. Borderline right ventricular enlargement. There is mild tricuspid regurgitation. Right ventricular systolic pressure is elevated at 30-40mmHg. There is no pericardial effusion. DVT prophylaxis: SCD Social issues: patient has outside block and case maker Nerissarancho Allen [phone], or [phone]. Disposition: patient to be discharged with medications including antibiotics of amoxicillin 500 mg TID for 14 days for urinary tract infection patient has discharge appointment to see primary care doctor associated with Dr. Marko Ponce on [address] [facility] in [place], [place] on 2016 at 12:45 PM (telephone number ) In addition will need referral from the primary doctor to follow up with Dr. Gloria Dubois urology physician who had placed the uretal stents while inpatient. Her Pager: . There are possible plans for bilateral ureteroscopy with laser lithotripsy in 2 weeks as outpatient for this patient with this urology physician Current Hospital Diet Patient's current hospital diet: Regular Diet Discharge Diet Recommended Diet: Regular Diet Procedures Procedures Performed: cysto bilateral stent placement Pending Studies Studies pending at discharge: no Laboratory Results 07/17/17 05:57 Red Blood Count 4.06, Mean Corpuscular Volume 96.3, Mean Corpuscular Hemoglobin 32.3, Mean Corpuscular Hemoglobin Concent 33.5, Mean Platelet Volume 10.2, Neutrophils (%) (Auto) 65.2, Lymphocytes (%) (Auto) 24.7, Monocytes (%) (Auto) 7.1, Eosinophils (%) (Auto) 2.3, Basophils (%) (Auto) 0.4, Neutrophils # (Auto) 7.66, Lymphocytes # (Auto) 2.90, Monocytes # (Auto) 0.84, Eosinophils # (Auto) 0.27, Basophils # (Auto) 0.05 07/17/17 05:57 Test 07/15/17 09:20 07/15/17 09:58 07/15/17 10:37 07/17/17 05:57 Direct Bilirubin 0.2 mg/dl (0-0.2) Troponin I < 0.015 ng/ml (0-0.045) Lipase 120 U/L (73-393) Lactic Acid Level 1.4 mmol/L (0.4-2.0) Urine Color YELLOW Urine Appearance CLOUDY (CLEAR) Urine pH 6.5 (4.5-7.5) Urine Specific [place] 1.018 (1.000-1.030) Urine Protein NEG (NEG) Urine Glucose (UA) NEG (NEG) Urine Ketones NEG (NEG) Urine Occult Blood 2+ (NEG) Urine Nitrite NEG (NEG) Urine Bilirubin NEG (NEG) Urine Urobilinogen NEG (NEG) Urine Leukocyte Esterase LARGE (NEG) Urine WBC (Auto) >30 /hpf (0-5) Urine RBC (Auto) 10-30 /hpf (0-4) Urine Hyaline Casts (Auto) 1-5 /lpf (0-5) Urine Epithelial Cells (Auto) 0-5 /lpf (0-5) Urine Bacteria (Auto) 1+ (NEG) White Blood Count 11.75 K/uL (4.8-10.8) Red Blood Count 4.06 M/uL (4.7-6.1) Hemoglobin 13.1 g/dL (14.0-18.0) Hematocrit 39.1 % (42-52) Mean Corpuscular Volume 96.3 fL (80-100) Mean Corpuscular Hemoglobin 32.3 pg (25-34) Mean Corpuscular Hemoglobin Concent 33.5 g/dl (32-36) Platelet Count 200 K/uL (130-400) Mean Platelet Volume 10.2 fL (7.4-10.4) Neutrophils (%) (Auto) 65.2 % Lymphocytes (%) (Auto) 24.7 % Monocytes (%) (Auto) 7.1 % Eosinophils (%) (Auto) 2.3 % Basophils (%) (Auto) 0.4 % Neutrophils # (Auto) 7.66 K/uL (1.4-6.5) Lymphocytes # (Auto) 2.90 K/uL (1.2-3.4) Monocytes # (Auto) 0.84 K/uL (0.11-0.59) Eosinophils # (Auto) 0.27 K/uL (0-0.5) Basophils # (Auto) 0.05 K/uL (0-0.2) RDW Standard Deviation 47.0 fL (36.4-46.3) RDW Coefficient of Variation 13.3 % (11.5-14.5) Immature Granulocyte % (Auto) 0.3 % Immature Granulocyte # (Auto) 0.03 K/uL (0.00-0.02) Anion Gap 6.0 mmol/L (3-11) Est Creatinine Clear Calc Drug Dose 64.1 ml/min Estimated GFR () 68.7 Estimated GFR (Non- 59.3 BUN/Creatinine Ratio 12.8 (10-20) Calcium Level 9.1 mg/dl (8.5-10.1) Total Bilirubin 0.6 mg/dl (0.2-1) Aspartate Amino Transf (AST/SGOT) 16 U/L (15-37) Alanine Aminotransferase (ALT/SGPT) 18 U/L (12-78) Alkaline Phosphatase 65 U/L (45-117) Total Protein 6.1 gm/dl (6.4-8.2) Albumin 2.9 gm/dl (3.4-5.0) Globulin 3.2 gm/dl (2.5-4.0) Albumin/Globulin Ratio 0.9 (0.9-2) Date/Time Source Procedure Growth Status 07/15/17 11:40 Blood Blood Culture - Preliminary NO GROWTH TO DATE. Resulted 07/15/17 15:55 Urine,Catheterized Urine Culture - Final Enterococcus Faecalis Complete Medical Emergencies . Who to Call and When: Medical Emergencies: If at any time you feel your situation is an emergency, please call 911 immediately. . Non-Emergent Contact Non-Emergency issues call your: Primary Care Provider Call Non-Emergent contact if: you have a fever, your pain is not controlled . . "Provider Documentation" section prepared by Domingo Gloria. . VTE Core Measure Inpt VTE Proph given/why not?: SCD's
--- NOTE | 2017-07-17 16:49 | Discharge Summary ---
Discharge Summary Date of Service Jul 17, 2017. Discharge Summary Admission Date: Jul 15, 2017 at 12:43 Discharge Date: Jul 17, 2017 Discharge Disposition: Home Principal Diagnosis: abdominal pain, bilateral obstructing ureteral stones, s/p stent cysto bilateral stent placement, UTI with E. Faecalis, Hypertension Procedures: s/p stent cysto bilateral stent placement, Transthoracic Echo Consultations: urology Medication Reconciliation New Medications: Amoxicillin (Amoxicillin) 500 Mg Cap 500 MG OR TID for 14 Days, #42 TAB Lisinopril (Lisinopril) 2.5 Mg Tab 2.5 MG PO QAM for 30 Days, #30 TAB 1 Refill Phenazopyridine HCl (Phenazopyridine HCl) 200 Mg Tab 200 MG PO TID PRN for Bladder pain for 15 Days, #45 TAB Tamsulosin HCl (Tamsulosin HCl) 0.4 Mg Cap 0.4 MG PO HS for 30 Days, #30 CAP 1 Refill Admission Information HPI (per Admitting provider): 62 YO male without a primary care provider. History of hypertension; has been unable to obtain his medications. Developed abdominal pain around 3:00 this morning when he was sleeping. Pain located in the LLQ and does not radiate. It is constant and severe (9/10). Associated with nausea and vomiting. No fever. No dysuria. No diarrhea, melena, hematochezia. Did not take any meds to relieve his symptoms at home. Came to ED for evaluation. Received ondansetron, fentanyl, and morphine with minimal relief of his symptoms. CT of abdomen and pelvis demonstrated bilateral ureteral calculi as detailed below. ED provider consulted Urologist tax economist. Patient referred for admission for further evaluation and management. . Physical Exam (per Admitting): General Appearance: WD/WN, + moderate distress Head: normocephalic, atraumatic Eyes: normal inspection, PERRL, EOMI, sclerae normal (conjunctivae pink) ENT: hearing grossly normal, + pertinent finding (oral mucosa dry, edentulous) Neck: supple, no adenopathy, thyroid normal, no JVD, trachea midline Respiratory/Chest: lungs clear, no respiratory distress, no accessory muscle use Cardiovascular: regular rate, rhythm, no edema, no JVD, no murmur, + gallop/ S4 Abdomen/GI: + pertinent finding (quiet bowel sounds, left lower quadrant tenderness with guarding, no masses or organomegaly appreciated, but exam limited) Extremities/Musculoskelatal: normal inspection, no calf tenderness, no pedal edema Neurologic/Psych: loan review analyst II-XII nml as tested (PERRL, EOMI, no facial palsy), no motor/sensory deficits (grossly intact), alert, normal mood/affect, oriented x 3 Skin: normal color, warm/dry, no rash Lymphatic: no adenopathy (cervical) Hospital Course 62 year old M with presented with abdominal pain, and CT abdominal findings as below with significant finding for bilateral obstructing ureteral stones, s/p stent cysto bilateral stent placement on 07/15/2017 ABD/PELVIS IV CONTRAST 07/15/2017 "IMPRESSION: 1. Bilateral obstructing ureteral calculi measuring 11 mm in the proximal right ureter and 8 mm in the mid left ureter. Resultant severe bilateral hydroureteronephrosis. Additional bilateral nephrolithiasis. The presence of extensive left perinephric fluid suggests calyceal rupture. 2. Extensive peripancreatic fluid along the tail. This could be secondary to left renal calyceal rupture versus acute interstitial edematous pancreatitis. Correlate with lipase. 3. Prostatomegaly with chronic bladder outlet obstruction" Patient currently is post op stent placement on 07/15/2017 and had been receiving Zosyn IV q8 hours for urinary tract infection with urine cultures for Strep with subsequent culture reporting E.faecalis sensitive to Beta- lactams. Was switched to Augmentin 875 mg BID on 07/17/2017. However based on patient's financial constraints, amoxicillin 500 mg TID is a cheaper substitute on tamsulosin to avoid urinary retention. continue this medication have been on Pyridium TID prn for bladder pain, and narcotics prn for abdominal/ bladder discomfort if needed, bowel regimen with miralax; will continue prn meds as outpatient except for narcotics initially hypertensive on admission and placed on telemetry monitoring, blood pressure control with low dose lisinopril and IV labetalol prn, will continue low dose lisinopril as outpatient Transthoracic echo: The left ventricle is normal in size. There is mild concentric left ventricular hypertrophy. Left ventricular systolic function is normal. The left ventricular wall motion is normal. Ejection Fraction = 60-65%. Borderline right atrial enlargement. Borderline right ventricular enlargement. There is mild tricuspid regurgitation. Right ventricular systolic pressure is elevated at 30-40mmHg. There is no pericardial effusion. DVT prophylaxis: SCD Social issues: patient has outside casey saw operator Nerissa Allen [phone] ext [phone], or [phone]. Disposition: patient to be discharged with medications including antibiotics of amoxicillin 500 mg TID for 14 days for urinary tract infection patient has discharge appointment to see primary care doctor associated with Dr. Marko Ponce on [address] [place] [address] in [place], [place] on 2016 at 12:45 PM (telephone number ) In addition will need referral from the primary doctor to follow up with Dr. Gloria Dubois urology physician who had placed the uretal stents while inpatient. Her Pager: [phone]. There are possible plans for bilateral ureteroscopy with laser lithotripsy in 2 weeks as outpatient for this patient with this urology physician Total time spent on discharge = This includes examination of the patient, discharge planning, medication reconciliation, and communication with other providers. Discharge Instructions Disposition: patient to be discharged with medications including antibiotics of amoxicillin 500 mg TID for 14 days for urinary tract infection patient has discharge appointment to see primary care doctor associated with Dr. Marko Ponce on [address] [place] [address] in [place], [place] on 2016 at 12:45 PM (telephone number ) In addition will need referral from the primary doctor to follow up with Dr. Gloria Dubois urology physician who had placed the uretal stents while inpatient. Her Pager: . There are possible plans for bilateral ureteroscopy with laser lithotripsy in 2 weeks as outpatient for this patient with this urology physician
[2017-07-17] MEDS ORDERED: AMOXICILLIN/CLAVULANATE TAB 875 MG TAB PO SCH (17:00)
[2017-07-17] MEDS ORDERED: PHENAZOPYRIDINE HOME PACK 200 MG VIAL PO ONE (17:45)
[2017-07-17] MEDS ORDERED: FAMOTIDINE 20 MG TAB PO SCH (20:00)
[2017-07-17] MEDS ORDERED: AMOXICILLIN 500 MG CAP PO SCH ×2 (20:00)
[2017-07-17] MEDS ORDERED: TAMSULOSIN HCL 0.4 MG CAP PO SCH ×2 (21:00)
[2017-07-18] MEDS ORDERED: LISINOPRIL 2.5 MG TAB PO SCH (08:00)
== END 2017-07-17 18:45 | disposition home or self-care (01) | DRG 690 ==
LOC: EDBD 09:11 → C.EDB 09:13 → C.2T 12:43 → ENRESERV 12:53 → CANRESERV 07-16 18:18 → ENRESERV 07-16 18:18 → C.4E 07-16 19:28
PROVIDERS: ADMIT Hospitalist; ATTEND Hospitalist
PROC: 0T788DZ Dilation of Bilateral Ureters with Intraluminal Device, Via Natural or Artificial Opening Endoscopic (ICD-10-PCS; principal; 2017-07-15 16:15)
DX: N13.6 Pyonephrosis (principal); B95.2 Enterococcus as the cause of diseases classified elsewhere; I10 Essential (primary) hypertension; N40.1 Benign prostatic hyperplasia with lower urinary tract symptoms; I16.0 Hypertensive urgency; F17.200 Nicotine dependence, unspecified, uncomplicated

== ENCOUNTER → 2017-07-31 | Day surgery (SDC) | payer OTHER ==
[2017-07-29 09:38] VITALS: Ht 185.4 cm; Wt 72.7 kg
[~2017-07-31] VITALS: Ht 185.4 cm; Wt 72.7 kg
[~2017-07-31] MED LIST: ACET300T2 PO; AMOX500C3 PO; AMPICILLIN IV ONE; AMPICILLIN IV SCH; ATROPINE SULFATE 0.1 MG/ML 5ML SYR IV PRN; BELLADONNA/OPIUM SUPP 60 MG SUPP PR ONE; CEFAZOLIN 2000MG IV PUSH 10 ML IV SCH; DEXAMETHASONE SOD INJ 4 MG/ML VIAL ONE; EpHEDrine SULFATE INJ 50 MG/ML AMP IV PRN; FENTANYL CITRATE INJ 50 MCG/1 ML 2 ML VIAL ONE; GENTAMICIN INJ 80 MG in DEXTROSE 5% 100ML 100 ML IV SCH; HydrALAZINE HCL 20 MG/ML VIAL ONE; LIDOCAINE HCL 2% 2 ML VIAL (20MG/ML) ONE; LISI-729 PO; NSS IV ONE; ONDANSETRON INJ 2 MG/ML 2 ML VIAL IV PRN; ONDANSETRON INJ 2 MG/ML 2 ML VIAL ONE; PROPOFOL IV EMULSION 10 MG/ML 20 ML VIAL IV ONE; SODIUM CHLORIDE 0.9% IV SCH
[2017-07-31 09:03] VITALS: BP 153/96; PULSE 63; TEMP 36.4; O2SAT 96
--- NOTE | 2017-07-31 11:26 | History & Physical Bridge Note ---
H&P Re-Evaluation Bridge Note: I have examined the patient, reviewed the History & Physical and in the interval since the performance of the History & Physical I have noted the following changes of clinical significance: No changes noted
[2017-07-31] MEDS: FENTANYL CITRATE INJ 50 MCG/1 ML 2 ML VIAL IV PRN ×4 (13:35→15:30)
--- NOTE | 2017-07-31 15:01 | DIAGNOSTIC IMAGING REPORT ---
RETROGRADE INCLUDES KUB CLINICAL HISTORY: Bilateral ureteroscopy. COMPARISON STUDY: CT of the abdomen and pelvis July 15, 2017. Fluoroscopy time: 44 seconds. FINDINGS: 2 fluoroscopic images demonstrate placement of bilateral ureteral stents which appear appropriately positioned. IMPRESSION: Fluoroscopic images demonstrate placement of bilateral ureteral stents. Electronically signed by: Michael Dasilva M.D. 07/31/2017 2:59 PM Dictated Date/Time: 07/31/2017 2:58 PM
--- NOTE | 2017-07-31 15:03 | [facility] Operative Report ---
Operative Report Operative Date Jul 31, 2017. Pre-Operative Diagnosis bilateral ureteral stones, urinary tract infection Post-Operative Diagnosis bilateral ureteral stones, urinary tract infection Procedure(s) Performed Cystoscopy, Bilateral Ureteroscopy, Laser Lithotripsy, Basket Stone Extraction; Bilateral Stent Exchange Surgeon Dr. Gloria Dubois Medical Insurance Collector Surgeon(s) None Estimated Blood Loss 5ml Findings radio-opaque left mid ureteral sonte with severe impaction, right upper ureteral stones with mild impaction. Fluids 700mL Specimens A. Right and Left Ureteral Stone Fragments Drains bilateral 6fr x 24 centimeter ureteral stents Anesthesia LMA Disposition Recovery Room / PACU Indications obstructing bilateral ureteral stones. He was emergently stented for renal insufficiency and utis. He has recovered and now we plan bilateral ureteroscopy to laser and remove stones. Description of Procedure Patient was given general LMA anesthesia and placed in lithotomy position. His genitals were prepped and draped in sterile fashion. Time out held with team. I placed a 21 fr rigid cystoscope to bladder. The urethra is unremarkable. The prostate is mildly enlarged. The UOs are with bullous edema from the stents. I removed the left stent and found it to be intact. I placed a stiff wire up the left ureter to the kidney. I placed a flexible ureteroscope into the mid ureter and identified the stone. It is dark brown. I used a 200 micron holmium laser to fragment the stone into small pieces. It is severely impacted and care was taken to pry the stone rind away from the adherent urothelium. I used a 2.4 fr zero tip basket to remove the fragments. I placed a 24 centimeter 6 Fr double J stent easily. I then turned my attention to the right side. I removed the right stent and found it to be intact. I placed a stiff wire up the right ureter to the kidney. I placed a second wire then a 35 centimeter 12/14 ureteral access sheath to just distal to the upper ureteral stone. I placed a flexible ureteroscope into the upper ureter and identified the stone. It is dark brown. I used a 200 micron holmium laser to fragment the stone into small pieces. It is mildly impacted and care was taken to pry the stone rind away from the adherent urothelium. I used a 2.4 fr zero tip basket to remove the fragments. I then chased the second smaller more proximal stone into the kidney and lasered it there. I used the basket to remove the pieces. I placed a 24 centimeter 6 Fr double J stent easily on the right. I left bladder empty and concluded case. I placed a belladonna and opium suppository for post-op pain. He transferred to recovery under my escort, in stable condition. 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 Any exceptions are noted below.
--- NOTE | 2017-07-31 15:11 | Discharge Instructions ---
Discharge Instructions Date of Service Jul 31, 2017. Admission Reason for Admission: Ureteral Stone W/Hydronephrosis and uti Discharge Discharge Diagnosis / Problem: bilateral ureteral stones and uti Discharge Goals Goal(s): Improve disease control Activity Recommendations Activity Limitations: resume your previous activity Lifting Limitations: none Exercise/Sports Limitations: none May Resume Sexual Activity: when tolerated Shower/Bathe: no limitations Driving or Machine Use: resume 1 day after discharge . Instructions / Follow-Up Instructions / Follow-Up urine will be bloody for several days go to ER for fever over 100F take ibuprofen 600mg every 8 hours for pain use tylenol with codeine for severe pain Use a stool softener if you are using the codeine as it is constipating Discharge Diet Recommended Diet: Regular Diet Procedures Procedures Performed: Cystoscopy, Bilateral Ureteroscopy, Laser Lithotripsy, Basket Stone Extraction; Bilateral Stent Exchange Pending Studies Studies pending at discharge: yes List of pending studies: stone analysis Medical Emergencies . Who to Call and When: Medical Emergencies: If at any time you feel your situation is an emergency, please call 911 immediately. . Non-Emergent Contact Non-Emergency issues call your: Urologist ([phone]) Call Non-Emergent contact if: temperature is above 100.5, your pain is not controlled . . "Provider Documentation" section prepared by Gloria Dubois. . VTE Core Measure Inpt VTE Proph given/why not?: SCD's [place] Drug Monitoring Program Search Results: patient reviewed within database, no issues identified
--- NOTE | 2017-07-31 16:18 | Anesthesiology Progress Note ---
Anesthesia Post Op Note Date & Time Jul 31, 2017 at 16:18 Vital Signs Pain Intensity: 3 Vital Signs Past 12 Hours Date Time Temp Pulse Resp B/P (MAP) Pulse Ox O2 Delivery O2 Flow Rate FiO2 07/31/17 16:07 36.3 75 20 147/99 (113) 98 Room Air 07/31/17 15:26 169/109 07/31/17 15:23 58 11 100 07/31/17 15:23 58 11 100 07/31/17 15:23 57 11 07/31/17 15:23 57 11 07/31/17 15:21 162/99 07/31/17 15:21 162/99 07/31/17 15:18 64 15 100 07/31/17 15:18 64 15 100 07/31/17 15:18 61 15 07/31/17 15:18 61 15 07/31/17 15:16 161/118 07/31/17 15:16 161/118 07/31/17 15:13 66 17 100 07/31/17 15:13 66 17 07/31/17 15:13 66 17 07/31/17 15:13 66 17 100 07/31/17 15:10 166/111 07/31/17 15:10 166/111 07/31/17 15:08 67 8 100 07/31/17 15:08 67 8 100 07/31/17 15:08 66 8 07/31/17 15:08 66 8 07/31/17 15:06 144/103 07/31/17 15:06 144/103 07/31/17 15:05 149/113 07/31/17 15:05 149/113 07/31/17 15:04 135/104 07/31/17 15:04 135/104 07/31/17 15:03 71 13 100 07/31/17 15:03 71 13 100 07/31/17 15:03 69 13 07/31/17 15:03 69 13 07/31/17 15:03 36.1 75 20 135/104 (116) 98 Oxymask 10 07/31/17 09:03 36.4 63 18 153/96 (115) 96 Room Air Notes Mental Status: alert / awake / arousable, participated in evaluation Pt Amnestic to Procedure: Yes Nausea / Vomiting: adequately controlled Pain: adequately controlled Airway Patency, RR, SpO2: stable & adequate BP & HR: stable & adequate Hydration State: stable & adequate Anesthetic Complications: no major complications apparent
[2017-07-31 16:20] VITALS: BP 150/92; PULSE 72; TEMP 36.4; O2SAT 96
[2017-07-31 16:50] VITALS: BP 142/88; PULSE 73; TEMP 36.4; O2SAT 97
[2017-07-31 17:18] VITALS: BP 154/98; TEMP 36.3; O2SAT 98
[2017-07-31 18:02] VITALS: BP 135/84; PULSE 93; TEMP 37; O2SAT 96
== END | disposition home or self-care (01) ==
LOC: C.ACU 08:27
PROVIDERS: ATTEND Urology
DX: N20.1 Calculus of ureter (principal); N39.0 Urinary tract infection, site not specified; Z98.890 Other specified postprocedural states